=== PATIENT | female | born 1980 | race Caucasian/White ===

== ENCOUNTER 2019-03-08 17:16 | Emergency (ER) | payer SELFPAY ==
--- NOTE | 2019-03-08 17:18 | XRR_ITS ---
PROCEDURE INFORMATION: Exam: XR Right Shoulder Exam date and time: 03/08/2019 5:19 PM Age: 38 years old Clinical indication: Injury or trauma; Fall; Initial encounter; Blunt trauma (contusions or hematomas; Right; Injury date: 03/08/2019; Injury details: PT was pushing a car when she slipped and hit with RT shoulder/head. RT shoulder pain TECHNIQUE: Imaging protocol: XR Right shoulder. Views: 2 or more views. COMPARISON: No relevant prior studies available. FINDINGS: Bones/joints: There are moderate degenerative changes across the acromioclavicular joint. No evidence for acute fracture. Soft tissues: Normal. XR/XR shoulder RT min 2V* [id number] IMPRESSION: No acute findings. There are moderate degenerative changes across the acromioclavicular joint.
[2019-03-08 17:22] VITALS: BP 169/92; PULSE 113; RESP 16; TEMP 36.8; O2SAT 100; BMI 31.1
--- NOTE | 2019-03-08 17:42 | ED_ITS ---
HPI - Extremity Problem General: Chief complaint: Extremity Injury, Upper Stated complaint: FALL WITH RIGHT SHOULDER AND ARM PAIN Time Seen by Provider: 03/08/19 17:33 History of Present Illness: HPI Narrative: Patient states couple hours ago she was pushing a car and she slipped on gravel with her arms extended in front of her and then after that her right shoulder right arm started hurting said she has some bruising on that right shoulder that has improved. Complains about some right hand pain also.Denies any other injuries. MD Complaint: extremity pain Onset (ago): hour(s) (2) Pain Consistency: intermittent Location: right and upper extremity Severity scale (1-10): 6 Quality: aching Radiation: none Relieving factors: immobilization Associated symptoms: Deny chest pain, fever(s) or rash Review of Systems Const: Denies: fever, chills or body aches Eyes: Denies: change in vision or blurry vision ENMT: Denies: throat pain or nasal congestion Card: Denies: chest pain or shortness of breath on exertion Resp: Denies: shortness of breath, productive cough or non-productive cough GI: Denies: abdominal pain, nausea or vomiting Musc: Reports: extremity pain and limited range of motion; Denies: extremity swelling, joint pain or joint swelling Skin/Breast: Denies: rash Neuro: Denies: headache Psych: Denies: anxiety or depression Christian/Lymph: Denies: easy bruising PFSH ED PFSH: Statuses (acute, chronic, etc) shown below reflect problem list status as previously entered and may not be historically accurate Social History Smoking and tobacco status: former smoker Female Reproductive History: Date of last menstrual period: 02/01/19 Physical Exam Const: COMMON NORMALS: no apparent distress, average body habitus and oriented x3 HENMT: COMMON NORMALS: normocephalic HEAD & SCALP: normal to inspection and normocephalic FACE & SINUS: normal facial exam Eye: COMMON NORMALS: conjunctivae normal GENERAL EYE: normal appearance of both eyes CONJUNCTIVA: Yes conjunctivae normal Neck/C-Spine: COMMON NORMALS: no JVD Chest: COMMONS NORMALS: inspection of chest normal Resp: COMMON NORMALS: normal respiratory effort and clear to auscultation bilaterally AUSCULTATION: clear to auscultation bilaterally Cardio: COMMON NORMALS: no JVD, regular rate and regular rhythm RATE: regular rate RHYTHM: regular rhythm GI: COMMON NORMALS: normal to inspection, nondistended, normoactive bowel sounds Extremity: COMMON NORMALS: normal to inspection and full ROM RIGHT UPPER EXTREMITY: Yes shoulder joint (Pain no swelling), Yes upper arm (Pain no swelling) and Yes hand & digits (Pain no swelling) Neuro: COMMON NORMALS: oriented x3 Course Vital Signs: Vital signs: Vital Signs Temperature 98.2 F 03/08/19 17:22 Pulse Rate 113 H 03/08/19 17:22 Respiratory Rate 16 03/08/19 17:22 Blood Pressure 169/92 03/08/19 17:22 Pulse Oximetry 100 03/08/19 17:22 Coding Level of Care Code ED Aviation Consultant for Mike Stark
[2019-03-08 18:18] VITALS: BP 148/95; PULSE 106; RESP 18; O2SAT 100
== END 2019-03-08 18:13 | disposition home or self-care (01) ==
PROVIDERS: Emergency Provider Nurse Practitioner Family; PCP Urology
DX: M79.601 Pain in right arm (principal); Z87.891 Personal history of nicotine dependence
CPT/HCPCS: 73030; 99281

== ENCOUNTER 2019-07-22 20:28 | Emergency (ER) | payer SELFPAY ==
--- NOTE | 2019-07-22 20:37 | XR_ITS ---
WS: [id number] Portable AP upright chest, 07/22/2019 Clinical Data: SOB Comparison: None. Findings: No nodules, masses or effusions are seen. The heart is normal. The pulmonary vascularity is not increased. No pneumonia or pneumothorax is seen. There are healed rib fractures of the lateral a spect of the left fourth, sixth and seventh ribs. XR/XR chest 1V portable [id number] Impression: Negative chest.
[2019-07-22 22:08] VITALS: BP 138/78; PULSE 84; RESP 16; TEMP 36.9; O2SAT 99; BMI 34.0
--- NOTE | 2019-07-23 | USR_ITS ---
PROCEDURE INFORMATION: Exam: US Abdomen Limited, Right Upper Quadrant Exam date and time: 07/23/2019 12:33 AM Age: 39 years old Clinical indication: Abdominal pain TECHNIQUE: Imaging protocol: Real-time ultrasound of the abdomen with image documentation. Examination was focused on the right upper quadrant. COMPARISON: No relevant prior studies available. FINDINGS: Liver: Unremarkable liver, no focal abnormality. Gallbladder: Unremarkable gallbladder. No cholelithiasis. No gallbladder wall thickening or pericholecystic fluid. The gallbladder does not appear abnormally distended at this time. Common bile duct: No biliary dilation, common duct measures 4.5 mm. Pancreas: Visible pancreas unremarkable. Right kidney: Images of the right kidney show no hydronephrosis. US/US gall bladder [id number] IMPRESSION: 1. No cholelithiasis or biliary tree dilation. 2. Other findings discussed above.
[2019-07-23 00:42] VITALS: PULSE 88; RESP 18; O2SAT 100
[2019-07-23 00:49] LABS: Basophils % 0.5 %; Eosinophils # 0.1 10^3/uL (0.0-0.8); Eosinophils % 1.8 %; Hematocrit 36.5 % (37.0-47.0); Hemoglobin 11.5 g/dL (11.5-15.3); Lymphocytes # 2.9 10^3/uL (0.8-4.8); Mean Corpuscular HGB Conc 31.5 g/dL (30.0-36.0); Mean Corpuscular Hemoglobin 28.1 pg (28.0-34.0); Mean Corpuscular Volume 89.2 fL (81-99); Mean Platelet Volume 10.3 fL (7.4-10.4); Monocytes # 0.4 10^3/uL (0.2-0.9); Monocytes % 6.9 %; Neutrophils # 2.7 10^3/uL (1.8-7.7); Neutrophils % 43.5 %; Nucleated Red Blood Cells % 0 %; Platelet Count 244 10^3/cmm (130-400); Red Blood Count 4.09 10^6/uL (4.1-5.3); Red Cell Distribution Width 14.4 % (12.1-15.1); White Blood Count 6.1 10^3/uL (4.0-10.0)
[2019-07-23 01:03] VITALS: RESP 18; O2SAT 100
[2019-07-23] MEDS: ondansetron 2 mg/ML SDV 2 mL 4 MG IVP (01:03)
[2019-07-23] MEDS: morphine 4 mg/mL SDV 1 mL IVP (01:03)
[2019-07-23 01:09] LABS: Amorphous Sediment Urine 2+; Bacteria Urine 1+; Bilirubin Urine Neg (NEGATIVE); Blood Urine Neg (Negative); Glucose Urine UA Norm (Normal); Ketones Urine Negative (Negative); Leukocyte Esterase Urine Negative (Negative); Nitrate Urine Negative (Negative); Protein Urine Neg (Negative); RBC Urine RARE /hpf (0-2); Squamous Epithelial Cell Urine RARE (0-5); Urine Appearance SL Hazy (CLEAR); Urine Color Yellow (Yellow); Urobilinogen Urine Norm (Negative); WBC Urine 0-4 /hpf (0-5); pH Urine 6 (5-7)
--- NOTE | 2019-07-23 01:18 | W.ED.NAVMDI ---
HPI - Nausea/Vomiting/Diarrhea General: Chief complaint: Nausea/Vomiting/Diarrhea Stated complaint: vomiting/sob Time Seen by Provider: 07/22/19 23:52 History of Present Illness: HPI Narrative: Georgia is a very nice 39-year-old female who comes in with abdominal pain and vomiting for the past 2 days. He had a temperature as high as 100.4. Her abdominal pain is described as cramping and intermittent and mostly in the upper abdomen. She is had some associated diarrhea but also dysuria. She denies any chest pain or shortness of breath. She mentioned to the nurse that she was short of breath but she said that was from she had just been vomiting. She denies any shortness of breath at this time. She denies cough, congestion, headache, low back pain or any other discomforts. She is unaware of anything that makes her symptoms better or worse. Associated nausea: Yes Associated symtoms: Reports nausea; Denies change in vision, chest pain, diaphoresis, dizziness, dysuria, fatigue, headache(s), malaise, palpitations or syncope Review of Systems Const: Denies: fever(s), chills, body aches, fatigue, malaise or diaphoresis Eyes: Denies: change in vision, blurry vision, blind spots or photophobia ENMT: Denies: throat pain, odynophagia, hoarseness, swelling of lips/tongue, ear or mastoid pain, ear discharge, change in hearing or nasal discharge Card: Denies: chest pain, palpitations, irregular heart rhythm, edema, lightheadedness, syncope, pre-syncope, dyspnea on exertion or orthopnea Resp: Denies: dyspnea, productive cough, non-productive cough, wheezing, hemoptysis or chest congestion GI: Reports: abdominal pain, nausea, vomiting and diarrhea; Denies: hematemesis, coffee ground emesis, heartburn, constipation, GI cramping, hematochezia or melena : Denies: flank pain, dysuria, urinary frequency, urinary urgency or hematuria Musc: Denies: neck pain, back pain, extremity pain, extremity swelling, joint pain, joint swelling, joint redness, joint warmth or joint stiffness Skin/Breast: Denies: rash, pruritus, erythema, skin tenderness or jaundice Neuro: Denies: headache(s), numbness in extremities, weakness in extremities, sensory changes, lack of coordination, difficulty walking, dizziness, vertigo, confusion or Slurred speech present Christian/Lymph: Denies: easy bruising, easy bleeding, petechiae, purpura or enlarged lymph nodes All/Imm: Denies: urticaria, throat swelling, tongue swelling, facial swelling or acute wheezing PFSH ED PFSH: Medical History No pertinent past medical history Surgical History No history of previous surgery Social History Smoking and tobacco status: former smoker Female Reproductive History: Date of last menstrual period: 07/21/19 Physical Exam Const: COMMON NORMALS: no acute distress, patient oriented x3, no limitations, healthy appearing and well nourished GENERAL APPEARANCE: cooperative, well kempt and well developed HENMT: COMMON NORMALS: normocephalic, atraumatic, external ears normal, EAC's normal and Normal external nose present HEAD & SCALP: normal to inspection, normocephalic and atraumatic FACE & SINUS: normal facial exam and face symmetric NOSE: Normal external nose present and Normal nares present EXTERNAL EAR: Yes external ears normal EXTERNAL AUDITORY CANAL: EAC's normal MOUTH: Normal oral and palatal mucosa present, lip normal and tongue normal Eye: COMMON NORMALS: Equal, round and reactive pupils present and conjunctivae normal GENERAL EYE: appearance normal, both eyes and all related structures ALIGNMENT: Yes alignment normal PERIORBITAL: periorbital findings normal EYELID: eyelids normal CONJUNCTIVA: Yes conjunctivae normal SCLERA: sclerae normal PUPIL: Yes Equal, round and reactive pupils present Neck/C-Spine: COMMON NORMALS: full ROM, no lymphadenopathy, supple, no meningeal signs and no JVD GENERAL: Yes normal visual inspection and Yes trachea midline Chest: COMMONS NORMALS: normal inspection of the chest and normal palpation of entire chest wall Resp: COMMON NORMALS: normal respiratory effort, No retractions and No use of accessory muscles EFFORT & INSPECTION: Yes able to speak in complete sentences and Yes symmetric chest movement AUSCULTATION: no crackles, no rales, no rhonchi and no wheezes Cardio: COMMON NORMALS: no JVD, regular rate, regular rhythm, S1 normal heart sound present and S2 normal heart sound present RATE: regular rate RHYTHM: regular rhythm HEART SOUNDS: S1 normal heart sound present, S2 normal heart sound present, no click, no gallops, no murmurs, no rubs and abnormal split S2 GI: COMMON NORMALS: Soft to palpation and No hepatosplenomegaly present PALPATION: Yes Soft to palpation, Yes Tenderness to palpation present (GI) Details: RUQ; Negative for RLQ, No Guarding due to palpation present (GI), No Rigid due to palpation, Yes No hepatosplenomegaly present, No Hernia present, No Palpable mass present and No Pulsatile mass present : COMMON NORMALS: Yes no CVA tenderness BLADDER/KIDNEY EXAM: Yes no CVA tenderness EXTERNAL FEMALE EXAM: No Hernia present Back/Pelvis: COMMON NORMALS: no CVA tenderness, thoracic and lumbar spine normal to inspection, no thoracic nor lumbar tenderness and thoraco-lumbar ROM normal Extremity: COMMON NORMALS: normal to inspection, full ROM, capillary refill normal, no joint enlargement, no clubbing, cyanosis or edema and no calf tenderness Neuro: COMMON NORMALS: patient oriented x3, CN's II-XII intact bilaterally, moves all extremities, no focal motor deficits and no sensory deficits noted MENINGEAL SIGNS: Yes no meningeal signs SPEECH: speech normal Psych: COMMON NORMALS: mental status grossly normal, Normal thought process present, cooperative, normal affect, speech normal and activity/motor behavior normal APPEARANCE: Yes well kempt SPEECH: Yes normal speech THOUGHT PROCESS: Normal thought process present Skin: COMMON NORMALS: no rashes or lesions noted, turgor normal, no jaundice, no petechiae and no mottling GENERAL SKIN EXAM: no rashes or lesions noted and turgor normal Course Vital Signs: Vital signs: Vital Signs Temperature 98.4 F 07/22/19 22:08 Pulse Rate 88 07/23/19 00:42 Respiratory Rate 18 07/23/19 01:03 Blood Pressure 138/78 07/22/19 22:08 Pulse Oximetry 100 07/23/19 01:03 MDM - Nausea/Vomiting/Diarrhea MDM Narrative: Medical decision making narrative: [place] ultrasound is unremarkable. I have recommended that we perform a CT scan to rule out appendicitis but she declines. She states she is feeling better now with just IV fluids. She has no right lower quadrant pain on palpation. She states her right upper quadrant abdominal pain is gone. She states she wants to go home at this time. She understands the risks of missed appendicitis and I have discussed with her at length the possibility of that being a cause for her pain but she still wants to go home. She does agree to return should her symptoms change or worsen at this time she is feeling better and would like to be discharged. Lab Data: Attestation: I reviewed the patient's lab results. Labs: Lab Results 07/23/19 07/23/19 07/23/19 Range/Units 00:38 00:38 00:38 WBC 6.1 (4.0-10.0) 10^3/ uL RBC 4.09 L (4.1-5.3) 10^6/u L Hgb 11.5 (11.5-15.3) g/dL Hct 36.5 L (37.0-47.0) % MCV 89.2 (81-99) fL MCH 28.1 (28.0-34.0) pg MCHC 31.5 (30.0-36.0) g/dL RDW 14.4 (12.1-15.1) % Plt Count 244 (130-400) 10^3/c mm MPV 10.3 (7.4-10.4) fL Neut % (Auto) 43.5 % Lymph % (Auto) 47.0 % Hooker % (Auto) 6.9 % Eos % (Auto) 1.8 % Baso % (Auto) 0.5 % Neut # (Auto) 2.7 (1.8-7.7) 10^3/u L Lymph # (Auto) 2.9 (0.8-4.8) 10^3/u L Hooker # (Auto) 0.4 (0.2-0.9) 10^3/u L Eos # (Auto) 0.1 (0.0-0.8) 10^3/u L Baso # (Auto) 0.0 (0.0-0.1) 10^3/u L Nucleated RBC % (a uto) 0 % Nucleated RBCs # 0.0 /100WBC Sodium 140 (136-145) mmol/L Potassium 4.0 (3.5-5.1) mmol/L Chloride 104 (98-107) mmol/L Carbon Dioxide 25 (22-29) mmol/L Anion Gap 15.0 (5-19) BUN 11 (6-20) mg/dL Creatinine 0.5 (0.5-0.9) mg/dL GFR Calculation 138.8 H (90-130) mL/min Glucose 98 (65-115) mg/dL Calculated Osmolal ity 286 (285-295) mOsm/k g Calcium 8.7 (8.5-10.5) mg/dL Total Bilirubin 0.2 (0.15-1.2) mg/dL AST 36 H (0-32) U/L ALT 39 H (0-33) U/L Alkaline Phosphata se 52 (35-105) IU/L Total Protein 6.4 L (6.6-8.7) g/dL Albumin 3.9 (3.5-5.2) g/dL Globulin 2.5 (1.3-4.6) g/dL Lipase 20 (13-60) U/L Urine Color Yellow (Yellow) Urine Appearance Sl hazy (CLEAR) Urine pH 6 (5-7) Ur Specific Gravit y 1.020 (1.005-1.030) Urine Protein Neg (Negative) Urine Glucose (UA) Norm (Normal) Urine Ketones Negative (Negative) Urine Blood Neg (Negative) Urine Nitrate Negative (Negative) Urine Bilirubin Neg (NEGATIVE) Urine Urobilinogen Norm (Negative) mg/dL Ur Leukocyte Sherita ase Negative (Negative) Urine RBC Rare (0-2) /hpf Urine WBC 0-4 H (0-5) /hpf Ur Squamous Epith Cells Rare (0-5) Amorphous Sediment 2+ Urine Bacteria 1+ H (NONE) Imaging Data^: US: My impression: Ultrasound gallbladder, technologist interpretation -no acute findings. Discharge Plan Discharge Patient Disposition: Home, Self-Care Clinical Impression: Abdominal pain, vomiting, and diarrhea, Dehydration Condition: Stable Prescriptions: New dicyclomine 10 mg capsule 10 mg PO TID PRN (Reason: Diarrhea, abdominal cramping) Qty: 30 RF: 0 ondansetron HCl [Zofran] 4 mg tablet 4 mg PO QID PRN (Reason: nausea and vomiting) Qty: 20 RF: 0 No Action No Known Home Medications RF: 0 tramadol 50 mg tablet 50 mg PO Q6H PRN (Reason: pain) Qty: 7 RF: 0 Discharge Orders: Discharge Order (Routine); Ordered 07/23/19 Ordered By: Yumi Styles Referrals: Burke Chilel MD [Physician] - 1-3 days Discharge Diet: Advance as tolerated and Clear Liquid Discharge Activity: Increase activity as tolerated Patient Instructions: Abdominal Pain (ED) Activity Restrictions/Additional Instructions: Please return to the ER immediately for any of the signs or symptoms listed on your discharge instruction sheets, worsening/changing of your symptoms, you are not getting better as quickly as expected, or for ANY other cause or concerns. Return to the ER for return of your pain, return of fever, return of vomiting, blood in your stools, or for any other cause for concern. I have recommended and offered to perform a CT scan to definitively rule out appendicitis but you have declined. Of course appendicitis if missed can become severe even life-threatening. If you change your mind or your symptoms worsen/change in any way please return to the ER immediately for recheck. If your pain persists for more than another 10 to 12 hours return to the ER regardless as you will need further evaluation and care to definitively rule out appendicitis. Coding Level of Care Code ED Welding Machine Setter for Chg Fwd Exam Comprehensive
[2019-07-23 01:20] LABS: Alanine Aminotransferase 39 U/L (0-33); Albumin Level 3.9 g/dL (3.5-5.2); Alkaline Phosphatase 52 IU/L (35-105); Aspartate Amino Transferase 36 U/L (0-32); Blood Urea Nitrogen 11 mg/dL (6-20); Calcium 8.7 mg/dL (8.5-10.5); Carbon Dioxide 25 mmol/L (22-29); Chloride 104 mmol/L (98-107); Creatinine Clr Calc Pharmacy 149.1726; Globulin 2.5 g/dL (1.3-4.6); Glomerular Filtration Rate 138.8 mL/min (90-130); Glucose 98 mg/dL (65-115); Lipase 20 U/L (13-60); Osmolality Calculated 286 mOsm/kg (285-295); Sodium 140 mmol/L (136-145); Total Bilirubin 0.2 mg/dL (0.15-1.2); Total Protein 6.4 g/dL (6.6-8.7)
[2019-07-23] MEDS: sodium chloride 0.9% 1,000 ML 999 ML IV (01:44)
[2019-07-23 01:55] LABS: HCG, Serum Qual Negative (Negative)
[2019-07-23 02:25] VITALS: BP 127/73; PULSE 75; RESP 16; O2SAT 97
--- NOTE | 2019-07-23 03:11 | PC.NURSE ---
INT removed intact. Pressure dressing in place
[2019-07-23 03:12] VITALS: BP 109/63; PULSE 79; RESP 19
--- NOTE | 2019-07-23 09:32 | DCPLANNER ---
environmental health and safety manager had message to schedule a follow up appointment for patient with general surgery. environmental health and safety manager called [facility], spoke with Zoë. environmental health and safety manager gave clinic patients information, a follow up appointment is scheduled for Monday, July 29, 2019 at 3:[address] Chilel. Clinic will call patient with appointment information.
--- NOTE | 2019-08-08 13:55 | DCPLANNER ---
Patient had an appointment scheduled for Monday, July 29, 2019 at 3:[address] Chilel. Patient did attend the appointment.
== END 2019-07-23 03:14 | disposition home or self-care (01) ==
PROVIDERS: Emergency Provider Emergency Medicine
DX: R10.9 Unspecified abdominal pain (principal); R11.10 Vomiting, unspecified; R19.7 Diarrhea, unspecified; E86.0 Dehydration; Z87.891 Personal history of nicotine dependence
CPT/HCPCS: 12345; 71045; 76705; 80053; 81001; 83690; 84703; 85025; 96360; 96361; 96374; 96375; 99283; 99284; A9270; J2270; J2405; J7030

== ENCOUNTER 2019-08-06 09:21 | Outpatient (CLI) | payer SELFPAY ==
--- NOTE | 2019-08-06 10:00 | NM_ITS ---
WS: [id number] NUCLEAR MEDICINE HIDA SCAN WITH GALLBLADDER EJECTION FRACTION HISTORY: vomiting after fatty foods COMPARISON: None available. TECHNIQUE: The patient was intravenously injected with 7.6 mCi of TC99m Mebrofenin. Immediate imaging over the right upper quadrant was followed by 5 minute image and additional images for a total of 60 minutes. Normal uptake of radiotracer throughout the liver. Activity identified in the gallbladder at 20 minutes and well distended by 60 minutes. Activity in the proximal small bowel was seen by 50 minutes. Good washout of the radiotracer from the liver by 60 minutes. The patient then drank 8 ounces of Ensure Plus. Ejection fraction at 60 minutes was 74%. Normal GB ej ection fraction is 35-75%. Post fatty meal symptoms: None. NM/NM hepatobiliary w phar* [id number] IMPRESSION: 1. Normal HIDA scan. 2. Normal gallbladder ejection fraction.
== END 2019-08-06 09:22 | disposition home or self-care (01) ==
LOC: RAD 09:26
PROVIDERS: Visit Provider Surgery
DX: R11.10 Vomiting, unspecified (principal)
CPT/HCPCS: 78227; A9537

== ENCOUNTER → 2019-09-12 13:28 | Outpatient (BNVA) | payer SELFPAY | PROVIDERS: Visit Provider Family Medicine | DX: R30.0 Dysuria (principal); M25.511 Pain in right shoulder; G89.29 Other chronic pain | CPT/HCPCS: 81000 ==

== ENCOUNTER → 2019-11-26 15:30 | Outpatient (BNVA) | payer SELFPAY | PROVIDERS: Referring Provider Family Medicine; Visit Provider Specialist | DX: M25.511 Pain in right shoulder (principal) | CPT/HCPCS: 73030 ==

== ENCOUNTER → 2019-12-21 18:17 | Outpatient (BNVA) | payer OTHER, SELFPAY | PROVIDERS: Visit Provider Nurse Practitioner | DX: Z11.59 Encounter for screening for other viral diseases (principal) | CPT/HCPCS: 87635 ==

== ENCOUNTER 2020-11-18 08:13 | Emergency (ER) | payer SELFPAY ==
[2020-11-18 08:23] VITALS: BP 146/94; PULSE 106; RESP 18; TEMP 36.8; O2SAT 97; BMI 32.1
--- NOTE | 2020-11-18 08:39 | ECG_ITS ---
[facility] Test Date: 2020-11-18 Pat Name: Toyin Kang Department: Room: Gender: Female Tax Senior Associate: : 1980 Requested By: Kera Grossman Order Number: [id number] Gavi MD: Yvonne Harman M.D. Measurements Intervals [place] Rate: 94 P: 59 AK: 156 QRS: 46 QRSD: 84 T: 48 QT: 342 QTc: 429 Interpretive Statements SINUS RHYTHM No previous ECG available for comparison Electronically Signed On 11-19-2020 9:38:19 CDT by Yvonne Harman M.D. [email or web address]
--- NOTE | 2020-11-18 08:39 | XR_ITS ---
WS: [id number] XR chest 1V portable [id number] REASON FOR EXAM: chest pain FINDINGS: The chest is unchanged compared to previous examination of 07/22/2019. The heart and mediastinum are within normal limits. Calcified granulomatous disease in both hemithoraces. No active pulmonary parenchymal or pleural dise ase. Old healed rib fractures on the left. XR/XR chest 1V portable [id number] IMPRESSION: No acute chest abnormality.
--- NOTE | 2020-11-18 08:41 | W.ED.GENADLT ---
Documented by User: MANDEEP Shaw 11/18/20 11:01 HPI - General Adult General: Chief complaint: General Medical Stated complaint: Tingling in hands, swelling in feet Time Seen by Provider: 11/18/20 08:15 Source: patient Mode of arrival: ambulatory Limitations: no limitations History of Present Illness: HPI narrative: Patient is a 40-year-old female presents to ED today with multiple medical complaints. She tells me she has bilateral lower extremity swelling that has been present over the past 3 to 4 months. She tells me when she wears socks she notices an indentation in her legs when she removes them. Patient also has a complaint of bilateral hand numbness and tingling. She states again this has been present for several months. She does use her upper extremities a lot for work. She has a complaint of difficulty with urination. She states she has a lot of urgency and sometimes trouble starting the stream. She states this is been present for several years. She has discussed this with her PCP who told her it could be secondary to early menopause. She is having a complaint of some chest discomfort that started around 4am this morning. Patient tells me she has a history of anxiety and sometimes will experience chest pain but states this felt a little different. She describes it as a heaviness in her chest. She is not complaining of shortness of breath or difficulty breathing. No painful inspiration. No fevers/chills. Associated symptoms: Reports chest pain; Deny headache(s), malaise, nausea, rash, palpitations, syncope or vomiting Treatments prior to arrival: none Review of Systems Const: Denies: fever(s), chills, body aches, change in appetite, change in weight, fatigue or malaise Eyes: Denies: change in vision, blurry vision, photophobia, floaters or seeing flashes Card: Reports: chest pain and swelling of feet/ankles; Denies: palpitations, irregular heart rhythm, edema, lightheadedness, syncope, pre-syncope, dyspnea on exertion, orthopnea, leg pain with exertion or acrocyanosis Resp: Denies: productive cough, non-productive cough, wheezing, pain on inspiration, hemoptysis or chest congestion GI: Denies: abdominal pain, nausea, vomiting or diarrhea : Reports: difficulty voiding, urinary urgency and urinary hesitancy; Denies: flank pain, dysuria, urinary frequency, nocturia, urinary incontinence, hematuria or pelvic pain Musc: Denies: neck pain, back pain, extremity pain or joint pain Skin/Breast: Denies: rash Neuro: Reports: sensory changes (reports tingling to bilateral hands); Denies: headache(s), weakness in extremities or dizziness [facility] ED PFSH: Medical History (Updated 11/18/20 @ 10:59 by MNADEEP Shaw) GERD (gastroesophageal reflux disease) No pertinent past medical history Surgical History No history of previous surgery Family History Father CAD (coronary artery disease) Other Chronic kidney disease (CKD) Denies family history of Anesthesia complication Bleeding disorder Social History Smoking and tobacco status: former smoker Alcohol intake: never Lives independently: Yes Marital status: Single History of recent travel: No Physical Exam Const: COMMON NORMALS: no acute distress, patient oriented x3, no limitations and alert GENERAL APPEARANCE: cooperative NUTRITIONAL APPEARANCE: obese ORIENTATION/CONSCIOUSNESS: Yes awake, Yes oriented to person, Yes oriented to place and Yes oriented to time HENMT: COMMON NORMALS: normocephalic and atraumatic HEAD & SCALP: normocephalic and atraumatic Chest: COMMONS NORMALS: normal inspection of the chest OTHER: reports tenderness to anterior palpation of chest wall Resp: COMMON NORMALS: normal respiratory effort and clear to auscultation bilaterally AUSCULTATION: clear to auscultation bilaterally Cardio: COMMON NORMALS: regular rate and regular rhythm RATE: regular rate RHYTHM: regular rhythm GI: COMMON NORMALS: Normal to inspection, nondistended, normoactive bowel sounds present, Soft to palpation, non-tender, No hepatosplenomegaly present and no masses PALPATION: Yes Soft to palpation and Yes No hepatosplenomegaly present : COMMON NORMALS: Yes no CVA tenderness BLADDER/KIDNEY EXAM: Yes no CVA tenderness Back/Pelvis: COMMON NORMALS: no CVA tenderness Extremity: COMMON NORMALS: full ROM, capillary refill normal, no joint enlargement and no calf tenderness NARRATIVE EXTREMITY EXAM: mild bilateral symmetrical 1+ pitting edema GENERAL: Yes normal exam except as noted Neuro: ENRRIQUE COMA SCALE: document GCS findings [place] coma scale eye opening: Spontaneous [place] coma scale verbal response: Orientated [place] coma scale motor response: Obey commands Enrrique coma scale total score: 15 COMMON NORMALS: patient oriented x3, CN's II-XII intact bilaterally, moves all extremities, no focal motor deficits, no sensory deficits noted and gait normal SENSORIUM/ORIENTATION: Yes alert, Yes oriented to person, Yes oriented to place and Yes oriented to time MOTOR EXAM: 5/5 motor strength present throughout Skin: COMMON NORMALS: no rashes or lesions noted GENERAL SKIN EXAM: no rashes or lesions noted TRAUMA: no lacerations or abrasions Course Vital Signs: Vital signs: Vital Signs Temperature 98.2 F 11/18/20 08:23 Pulse Rate 100 11/18/20 11:46 Respiratory Rate 16 11/18/20 10:10 Blood Pressure 116/70 11/18/20 11:46 Pulse Oximetry 96 11/18/20 11:46 MDM - General Adult MDM Narrative: Medical decision making narrative: Patient here with multiple medical complaints none of which are acute. She did have some chest pain that she was complaining about that she stated felt slightly different. Work-up here including CBC, CMP, troponin, and BNP are unremarkable. Her EKG is normal. CXR is normal. Vital signs are stable. Recommend she follow-up with her primary care provider for further evaluation and treatment of her chronic symptoms. Lab Data: Labs: Lab Results 11/18/20 11/18/20 11/18/20 10:02 10:02 10:02 WBC 5.5 10^3/uL 10^3/ uL (4.0-10.0) RBC 4.07 10^6/uL L 10 ^6/uL (4.1-5.3) Hgb 11.7 g/dL g/dL (11.5-15.3) Hct 37.9 % % (37.0-47.0) MCV 93.1 fl fl (81-99) MCH 28.7 pg pg (28.0-34.0) MCHC 30.9 g/dL g/dL (30.0-36.0) RDW 13.2 % % (12.1-15.1) Plt Count 282 10^3/cmm 10^3 /cmm (130-400) MPV 9.6 fL fL (7.4-10.4) Neut % (Auto) 32.7 % % Lymph % (Auto) 56.3 % % [place] % (Auto) 7.4 % % Eos % (Auto) 2.5 % % Baso % (Auto) 1.1 % % Neut # (Auto) 1.80 10^3/uL 10^3 /uL (1.8-7.7) Lymph # (Auto) 3.1 10^3/uL 10^3/ uL (0.8-4.8) [place] # (Auto) 0.4 10^3/uL 10^3/ uL (0.2-0.9) Eos # (Auto) 0.1 10^3/uL 10^3/ uL (0.0-0.8) Baso # (Auto) 0.1 10^3/uL 10^3/ uL (0.0-0.1) Nucleated RBC % (a uto) 0 % % Nucleated RBCs # 0.0 /100WBC /100W BC Sodium 138 mmol/L mmol/L (136-145) Potassium 3.9 mmol/L mmol/L (3.5-5.1) Chloride 102 mmol/L mmol/L (98-107) Carbon Dioxide 28 mmol/L mmol/L (22-29) Anion Gap 11.9 (5-19) BUN 10 mg/dL mg/dL (6-20) Creatinine 0.6 mg/dL mg/dL (0.5-0.9) GFR Calculation 111.9 mL/min mL/m in (90-130) Glucose 75 mg/dL mg/dL (65-115) Calculated Osmolal ity 284 mOsm/kg L mOs m/kg (285-295) Calcium 8.8 mg/dL mg/dL (8.5-10.5) Total Bilirubin 0.2 mg/dL mg/dL (0.15-1.2) AST 28 U/L U/L (0-32) ALT 29 U/L U/L (0-33) Alkaline Phosphata se 57 IU/L IU/L (35-105) Troponin T Baselin e 6 ng/L ng/L (0-10) NT-Pro-B Natriuret Pep 31 pg/mL pg/mL (0-125) Total Protein 6.2 g/dL L g/dL (6.6-8.7) Albumin 3.4 g/dL L g/dL (3.5-5.2) Globulin 2.8 g/dL g/dL (1.3-4.6) Imaging Data^: CXR: Radiologist's impression: [place] [id number], [place] [address]TCpa ReportSigned Patient: Toyin Kang #: [id number]: 1980Acct#:[id number]/Sex: 40 / FADM Date: 11/18/20Loc: ERRoom/Bed:Attending Dr: Ordering Provider/Ordering MD: Kera Grossman Date of Service: 11/18/20 Procedure(s): XR chest 1V portable [id number] Accession Number(s): [id number] Report Number: [id number] WS: [id number] XR chest 1V portable [id number] REASON FOR EXAM: chest pain FINDINGS: The chest is unchanged compared to previous examination of 07/22/2019. The heart and mediastinum are within normal limits. Calcified granulomatous disease in both hemithoraces. No active pulmonary parenchymal or pleural disease. Old healed rib fractures on the left. XR/XR chest 1V portable [id number] IMPRESSION: No acute chest abnormality. Dictated By:Joshua Shaw Jr MDSigned By:Joshua Shaw Jr MDSigned Date/Time:11/18/20 0900DD/ 0859 EKG Data^: EKG 1: EKG interpretation date: 11/18/20 EKG interpretation time: 09:03 Interpretation: Sinus rhythm Rate [address] elevation or depression changes noted Computer generated interpretation: Chest X-Ray 11/18/20 08:39 IMPRESSION: No acute chest abnormality. EKG 2: EKG interpretation date: 11/18/20 EKG interpretation time: 10:58 Interpretation: Sinus rhythm Rate [address] elevation or depression changes noted No acute changes noted when compared to EKG performed earlier on same visit Computer generated interpretation: Chest X-Ray 11/18/20 08:39 IMPRESSION: No acute chest abnormality. Discharge Plan Discharge Patient Disposition: Home Clinical Impression: Difficulty urinating, Non-cardiac chest pain, Bilateral edema of lower extremity Condition: Stable Prescriptions: No Action ascorbate calcium (vitamin C) 500 mg tablet 1 gm PO DAILY RF: 0 lansoprazole PO RF: 0 dicyclomine 10 mg capsule 10 mg PO TID PRN (Reason: Diarrhea, abdominal cramping) Qty: 30 RF: 0 Zofran 4 mg tablet 4 mg PO QID PRN (Reason: nausea and vomiting) Qty: 20 RF: 0 Discharge Orders: Discharge ED (Routine); Ordered 11/18/20 Ordered By: Kera Grossman Coding Level of Care Code ED Bilingual Operator for Chg Fwd Exam Comprehensive Documented by User: Champ Jain DO 11/18/20 17:21 HPI - General Adult General: Chief complaint: General Medical Stated complaint: Tingling in hands, swelling in feet Time Seen by Provider: 11/18/20 08:15 PFSH ED PFSH: Medical History (Updated 11/18/20 @ 10:59 by MANDEEP Shaw) GERD (gastroesophageal reflux disease) No pertinent past medical history Surgical History No history of previous surgery Family History Father CAD (coronary artery disease) Other Chronic kidney disease (CKD) Denies family history of Anesthesia complication Bleeding disorder Social History Smoking and tobacco status: former smoker Alcohol intake: never Lives independently: Yes Marital status: Single History of recent travel: No Course Vital Signs: Vital signs: Vital Signs Temperature 98.2 F 11/18/20 08:23 Pulse Rate 100 11/18/20 11:46 Respiratory Rate 16 11/18/20 10:10 Blood Pressure 116/70 11/18/20 11:46 Pulse Oximetry 96 11/18/20 11:46 MDM - General Adult MDM Narrative: Medical decision making narrative: Chart reviewed agree with assessment and plan Lab Data: Labs: Lab Results 11/18/20 11/18/20 11/18/20 10:02 10:02 10:02 WBC 5.5 10^3/uL 10^3/ uL (4.0-10.0) RBC 4.07 10^6/uL L 10 ^6/uL (4.1-5.3) Hgb 11.7 g/dL g/dL (11.5-15.3) Hct 37.9 % % (37.0-47.0) MCV 93.1 fl fl (81-99) MCH 28.7 pg pg (28.0-34.0) MCHC 30.9 g/dL g/dL (30.0-36.0) RDW 13.2 % % (12.1-15.1) Plt Count 282 10^3/cmm 10^3 /cmm (130-400) MPV 9.6 fL fL (7.4-10.4) Neut % (Auto) 32.7 % % Lymph % (Auto) 56.3 % % [place] % (Auto) 7.4 % % Eos % (Auto) 2.5 % % Baso % (Auto) 1.1 % % Neut # (Auto) 1.80 10^3/uL 10^3 /uL (1.8-7.7) Lymph # (Auto) 3.1 10^3/uL 10^3/ uL (0.8-4.8) [place] # (Auto) 0.4 10^3/uL 10^3/ uL (0.2-0.9) Eos # (Auto) 0.1 10^3/uL 10^3/ uL (0.0-0.8) Baso # (Auto) 0.1 10^3/uL 10^3/ uL (0.0-0.1) Nucleated RBC % (a uto) 0 % % Nucleated RBCs # 0.0 /100WBC /100W BC Sodium 138 mmol/L mmol/L (136-145) Potassium 3.9 mmol/L mmol/L (3.5-5.1) Chloride 102 mmol/L mmol/L (98-107) Carbon Dioxide 28 mmol/L mmol/L (22-29) Anion Gap 11.9 (5-19) BUN 10 mg/dL mg/dL (6-20) Creatinine 0.6 mg/dL mg/dL (0.5-0.9) GFR Calculation 111.9 mL/min mL/m in (90-130) Glucose 75 mg/dL mg/dL (65-115) Calculated Osmolal ity 284 mOsm/kg L mOs m/kg (285-295) Calcium 8.8 mg/dL mg/dL (8.5-10.5) Total Bilirubin 0.2 mg/dL mg/dL (0.15-1.2) AST 28 U/L U/L (0-32) ALT 29 U/L U/L (0-33) Alkaline Phosphata se 57 IU/L IU/L (35-105) Troponin T Baselin e 6 ng/L ng/L (0-10) NT-Pro-B Natriuret Pep 31 pg/mL pg/mL (0-125) Total Protein 6.2 g/dL L g/dL (6.6-8.7) Albumin 3.4 g/dL L g/dL (3.5-5.2) Globulin 2.8 g/dL g/dL (1.3-4.6) EKG Data^: EKG 1: Computer generated interpretation: Chest X-Ray 11/18/20 08:39 IMPRESSION: No acute chest abnormality. EKG 2: Computer generated interpretation: Chest X-Ray 11/18/20 08:39
[2020-11-18 10:10] VITALS: BP 121/80; PULSE 97; RESP 16; O2SAT 98
[2020-11-18 10:14] LABS: Basophils # 0.1 10^3/uL (0.0-0.1); Basophils % 1.1 %; Eosinophils # 0.1 10^3/uL (0.0-0.8); Eosinophils % 2.5 %; Hematocrit 37.9 % (37.0-47.0); Hemoglobin 11.7 g/dL (11.5-15.3); Lymphocytes # 3.1 10^3/uL (0.8-4.8); Lymphocytes % 56.3 %; Mean Corpuscular HGB Conc 30.9 g/dL (30.0-36.0); Mean Corpuscular Hemoglobin 28.7 pg (28.0-34.0); Mean Corpuscular Volume 93.1 fl (81-99); Mean Platelet Volume 9.6 fL (7.4-10.4); Monocytes # 0.4 10^3/uL (0.2-0.9); Monocytes % 7.4 %; Neutrophils % 32.7 %; Nucleated Red Blood Cells % 0 %; Platelet Count 282 10^3/cmm (130-400); Red Blood Count 4.07 10^6/uL (4.1-5.3); Red Cell Distribution Width 13.2 % (12.1-15.1); White Blood Count 5.5 10^3/uL (4.0-10.0)
--- NOTE | 2020-11-18 10:39 | ECG_ITS ---
[facility] Test Date: 2020-11-18 Pat Name: Toyin Kang Department: Room: Gender: Female Councilperson: : 1980 Requested By: Kera Grossman Order Number: [id number] Gavi MD: Yvonne Harman M.D. Measurements Intervals [place] Rate: 90 P: 58 OR: 149 QRS: 39 QRSD: 86 T: 43 QT: 343 QTc: 421 Interpretive Statements SINUS RHYTHM Compared to ECG 11/18/2020 09:03:09 No significant changes Electronically Signed On 11-19-2020 19:43:29 CDT by Yvonne Harman M.D. [id number]
[2020-11-18 10:40] LABS: Troponin(5th) Baseline 6 ng/L (0-10)
[2020-11-18 10:49] LABS: Alanine Aminotransferase 29 U/L (0-33); Albumin Level 3.4 g/dL (3.5-5.2); Alkaline Phosphatase 57 IU/L (35-105); Anion Gap 11.9 (5-19); Aspartate Amino Transferase 28 U/L (0-32); Blood Urea Nitrogen 10 mg/dL (6-20); Calcium 8.8 mg/dL (8.5-10.5); Carbon Dioxide 28 mmol/L (22-29); Chloride 102 mmol/L (98-107); Globulin 2.8 g/dL (1.3-4.6); Glomerular Filtration Rate 111.9 mL/min (90-130); Glucose 75 mg/dL (65-115); NT Pro B Type Natriuretic Pept 31 pg/mL (0-125); Osmolality Calculated 284 mOsm/kg (285-295); Potassium 3.9 mmol/L (3.5-5.1); Sodium 138 mmol/L (136-145); Total Bilirubin 0.2 mg/dL (0.15-1.2); Total Protein 6.2 g/dL (6.6-8.7)
[2020-11-18 11:46] VITALS: BP 116/70; PULSE 100; O2SAT 96
== END 2020-11-18 11:46 | disposition home or self-care (01) ==
PROVIDERS: Emergency Provider Physician Assistant
DX: R60.0 Localized edema (principal); R39.198 Other difficulties with micturition; R07.89 Other chest pain; Z87.891 Personal history of nicotine dependence
CPT/HCPCS: 36415; 71045; 80053; 83880; 84484; 85025; 93005; 99283

== ENCOUNTER 2020-12-03 15:19 | Emergency (ER) | payer SELFPAY ==
[2020-12-03 15:30] VITALS: BP 132/85; PULSE 107; RESP 18; TEMP 36.5; O2SAT 100; BMI 29.7
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
[2020-12-03 16:13] VITALS: BP 128/85; PULSE 104; RESP 18; TEMP 36.6; O2SAT 100
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
[2020-12-03] MEDS: neomycin-poly-bacitracin oint 0.9 gm Pkt 1 APPLIC TOPICAL (16:25)
[2020-12-03] MEDS: ibuprofen 800 mg tablet PO (16:25)
[2020-12-03 17:40] VITALS: BP 135/84; PULSE 104; RESP 16; TEMP 36.7; O2SAT 99
[2020-12-03 18:05] VITALS: BP 128/82; PULSE 104; RESP 16; TEMP 36.8; O2SAT 96
== END 2020-12-03 18:08 | disposition home or self-care (01) ==
PROVIDERS: Emergency Provider Family Medicine
DX: T21.24XA Burn of second degree of lower back, initial encounter (principal); X16.XXXA Contact with hot heating appliances, radiators and pipes, initial encounter; R55 Syncope and collapse; Z87.891 Personal history of nicotine dependence
CPT/HCPCS: 70450; 99283

== ENCOUNTER 2021-01-21 20:05 | Emergency (ER) | payer SELFPAY ==
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
[2021-01-21 20:20] VITALS: BP 128/91; PULSE 110; RESP 14; TEMP 36.2; O2SAT 97; BMI 29.2
[2021-01-21 20:44] LABS: Basophils % 0.4 %; Eosinophils # 0.1 10^3/uL (0.0-0.8); Hematocrit 47.2 % (37.0-47.0); Hemoglobin 14.8 g/dL (11.5-15.3); Lymphocytes # 1.7 10^3/uL (0.8-4.8); Lymphocytes % 33.9 %; Mean Corpuscular HGB Conc 31.4 g/dL (30.0-36.0); Mean Corpuscular Hemoglobin 28.3 pg (28.0-34.0); Mean Corpuscular Volume 90.2 fl (81-99); Mean Platelet Volume 11.2 fL (7.4-10.4); Monocytes # 0.3 10^3/uL (0.2-0.9); Monocytes % 6.7 %; Neutrophils # 2.93 10^3/uL (1.8-7.7); Neutrophils % 57.4 %; Nucleated Red Blood Cells % 0 %; Platelet Count 115 10^3/cmm (130-400); Red Blood Count 5.23 10^6/uL (4.1-5.3); Red Cell Distribution Width 13.7 % (12.1-15.1); White Blood Count 5.1 10^3/uL (4.0-10.0)
[2021-01-21 21:00] LABS: Acetaminophen < 5.0 ug/mL (10-30); Alanine Aminotransferase 37 U/L (0-33); Alcohol Level < 10 mg/dL (0-10); Alkaline Phosphatase 61 IU/L (35-105); Aspartate Amino Transferase 38 U/L (0-32); Blood Urea Nitrogen 7 mg/dL (6-20); Calcium 8.7 mg/dL (8.5-10.5); Carbon Dioxide 19 mmol/L (22-29); Chloride 100 mmol/L (98-107); Glomerular Filtration Rate 111.9 mL/min (90-130); Glucose 78 mg/dL (65-115); Osmolality Calculated 275 mOsm/kg (285-295); Salicylate < 0.3 mg/dL (3-10); Sodium 134 mmol/L (136-145); Total Bilirubin 0.2 mg/dL (0.15-1.2)
[2021-01-21 21:01] LABS: Anion Gap 18.7 (5-19); Potassium 3.7 mmol/L (3.5-5.1)
[2021-01-21 21:09] LABS: Slide Review Slide Review Perform
[2021-01-21 21:31] VITALS: PULSE 110; RESP 18; O2SAT 99
== END 2021-01-21 21:32 | disposition left against medical advice (07) ==
PROVIDERS: Emergency Provider Emergency Medicine
DX: T40.2X1A Poisoning by other opioids, accidental (unintentional), initial encounter (principal); Z87.891 Personal history of nicotine dependence
CPT/HCPCS: 80053; 80307; 85025; 99283

== ENCOUNTER 2021-02-05 04:42 | Inpatient (IN) | payer SELFPAY ==
[2021-02-05] VITALS (17 sets, daily range): BP systolic 113–154; BP diastolic 71–96; PULSE 102–145; RESP 16–20; TEMP 36.3–37.7; O2SAT 94–100; BMI 29.2; BMI 32.1
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
[2021-02-05] MEDS: sodium chloride 0.9% 1,000 ML 999 ML IV (05:08)
[2021-02-05] MEDS: HYDROmorphone 1 mg/mL INJ 1 mL IVP (05:09)
[2021-02-05 05:16] LABS: Basophils % 0.3 %; Eosinophils # 0.1 10^3/uL (0.0-0.8); Eosinophils % 0.8 %; Hematocrit 37.6 % (37.0-47.0); Hemoglobin 11.9 g/dL (11.5-15.3); Lymphocytes # 1.9 10^3/uL (0.8-4.8); Lymphocytes % 21.4 %; Mean Corpuscular HGB Conc 31.6 g/dL (30.0-36.0); Mean Corpuscular Hemoglobin 28.2 pg (28.0-34.0); Mean Corpuscular Volume 89.1 fl (81-99); Mean Platelet Volume 9.6 fL (7.4-10.4); Monocytes # 0.4 10^3/uL (0.2-0.9); Monocytes % 4.3 %; Neutrophils # 6.42 10^3/uL (1.8-7.7); Neutrophils % 72.6 %; Nucleated Red Blood Cells % 0 %; Platelet Count 272 10^3/cmm (130-400); Red Blood Count 4.22 10^6/uL (4.1-5.3); Red Cell Distribution Width 13.5 % (12.1-15.1); White Blood Count 8.8 10^3/uL (4.0-10.0)
[2021-02-05 05:26] LABS: HCG, Serum Qual Negative (Negative)
[2021-02-05 05:32] LABS: INR 1.02 (0.8-1.2)
[2021-02-05 05:35] LABS: Alanine Aminotransferase 30 U/L (0-33); Albumin Level 3.8 g/dL (3.5-5.2); Alkaline Phosphatase 66 IU/L (35-105); Anion Gap 13.5 (5-19); Aspartate Amino Transferase 36 U/L (0-32); Blood Urea Nitrogen 12 mg/dL (6-20); Calcium 8.2 mg/dL (8.5-10.5); Carbon Dioxide 26 mmol/L (22-29); Chloride 99 mmol/L (98-107); Globulin 2.7 g/dL (1.3-4.6); Glomerular Filtration Rate 93.6 mL/min (90-130); Glucose 105 mg/dL (65-115); Osmolality Calculated 280 mOsm/kg (285-295); Potassium 3.5 mmol/L (3.5-5.1); Sodium 135 mmol/L (136-145); Total Bilirubin 0.3 mg/dL (0.15-1.2); Total Protein 6.5 g/dL (6.6-8.7)
[2021-02-05 05:36] LABS: Alcohol Level < 10 mg/dL (0-10)
[2021-02-05] MEDS: iohexol 300 mg/mL 100 mL Btl IV (05:37)
[2021-02-05] MEDS: midazolam 1 mg/mL INJ 2 mL IVP (06:35)
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
[2021-02-05 07:42] LABS: Add Urine Microscopic? YES; Bilirubin Urine Neg (Negative); Blood Urine 2+ (Negative); Glucose Urine UA Norm (Normal); Ketones Urine Negative (Negative); Leukocyte Esterase Urine Negative (Negative); Nitrate Urine Negative (Negative); Protein Urine Neg (Negative); Urine Appearance Clear (CLEAR); Urine Color Yellow (Yellow); Urobilinogen Urine Norm (Negative); pH Urine 7 (5-7)
[2021-02-05 07:47] LABS: Add Urine Culture? No; Bacteria Urine TRACE /hpf; RBC Urine 0-4 /hpf (0-2); Squamous Epithelial Cell Urine 0-4 /hpf (0-5)
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
[2021-02-05] MEDS: ondansetron 2 mg/ML SDV 2 mL 4 MG IVP ×2 (10:58→17:26)
[2021-02-05] MEDS: morphine 4 mg/mL SDV 1 mL IVP ×2 (10:58→17:26)
[2021-02-05] MEDS: sodium chloride 0.9% 1,000 ML 100 ML IV ×2 (10:59→20:58)
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
[2021-02-05] MEDS: oxyCODONE 5 mg IR Tab/Cap PO (16:30)
[2021-02-05] MEDS: pantoprazole DR 40 mg Tablet PO (17:20)
[2021-02-06] VITALS (9 sets, daily range): BP systolic 123–145; BP diastolic 72–93; PULSE 102–115; RESP 12–18; TEMP 35.3–38; O2SAT 95–99
--- NOTE | 2021-02-06 | SCC_ITS ---
Procedure Done: Intramedullary nail left tibia fracture, open reduction internal fixation left distal fibular shaft fracture. Open reduction internal fixation left distal radius and distal radial shaft fracture, open reduction internal fixation transverse ulnar shaft fracture 378.7 seconds of fluoroscopic guidance, for a cumulative dose of 7.72 mGy, was provided to Dr. Acuna by the radiology department. C-arm images of the left wrist and left ankle were saved for the patient's permanent record. [facility]
[2021-02-06] MEDS: morphine 4 mg/mL SDV 1 mL IVP ×3 (00:16→15:40)
[2021-02-06] MEDS: acetaminophen 500 mg Tablet 1000 MG PO (00:23)
[2021-02-06 04:37] LABS: Basophils % 0.4 %; Eosinophils % 0.4 %; Hematocrit 32.4 % (37.0-47.0); Hemoglobin 10.3 g/dL (11.5-15.3); Lymphocytes # 1.9 10^3/uL (0.8-4.8); Mean Corpuscular HGB Conc 31.8 g/dL (30.0-36.0); Mean Corpuscular Hemoglobin 28.5 pg (28.0-34.0); Mean Corpuscular Volume 89.8 fl (81-99); Mean Platelet Volume 10.3 fL (7.4-10.4); Monocytes # 0.5 10^3/uL (0.2-0.9); Monocytes % 9.4 %; Neutrophils # 3.02 10^3/uL (1.8-7.7); Neutrophils % 54.6 %; Nucleated Red Blood Cells % 0 %; Platelet Count 232 10^3/cmm (130-400); Red Blood Count 3.61 10^6/uL (4.1-5.3); Red Cell Distribution Width 13.9 % (12.1-15.1); White Blood Count 5.5 10^3/uL (4.0-10.0)
[2021-02-06 04:59] LABS: Alanine Aminotransferase 23 U/L (0-33); Albumin Level 2.9 g/dL (3.5-5.2); Alkaline Phosphatase 49 IU/L (35-105); Anion Gap 12.2 (5-19); Aspartate Amino Transferase 30 U/L (0-32); Blood Urea Nitrogen 5 mg/dL (6-20); Calcium 7.7 mg/dL (8.5-10.5); Carbon Dioxide 24 mmol/L (22-29); Chloride 107 mmol/L (98-107); Globulin 2.3 g/dL (1.3-4.6); Glomerular Filtration Rate 178.6 mL/min (90-130); Glucose 92 mg/dL (65-115); Osmolality Calculated 285 mOsm/kg (285-295); Potassium 4.2 mmol/L (3.5-5.1); Sodium 139 mmol/L (136-145); Total Bilirubin 0.3 mg/dL (0.15-1.2); Total Protein 5.2 g/dL (6.6-8.7)
[2021-02-06] MEDS: sodium chloride 0.9% 1,000 ML 100 ML IV ×2 (06:34→15:40)
--- NOTE | 2021-02-06 16:23 | ANES.PREANE2 ---
Pre-Anesthetic Assessment Pre-Anesthetic Assessment: Height/Weight: Height 1.57 m Weight 79.6 kg Temp Pulse Resp BP Pulse Ox 98.2 F 104 H 12 125/86 95 02/06/21 12:00 02/06/21 12:00 02/06/21 15:40 02/06/21 12:00 02/06/21 15:40 Preop Diagnosis: radial fracture Proposed Procedure: Operation Date: 02/06/21 12:20 Proposed Procedures p ORIF Wrist(Left) - Maude Acuna MD s ORIF Tibia/Fibula(Left) - Maude Acuna MD Familial anesthetic complications: None (no personal history of anesthesia) Was Beta Lafonso taken within 24 hours: N/A Was Clonidine taken within 24 hours: N/A Last intake: > 8 hrs Social: Social History: No alcohol and No tobacco Exam: Pre-Anes Outpt Exam: alert, oriented x 3, clear to auscultation bilaterally and regular rate & rhythm Airway: Cervical ROM: WNL MP: 2 Dentition: Full GI: GI: GERD Anesthetic Plan: ASA status: 1 Anesthesia: General Risk of > 500 ml blood loss (7ml/kg in children): No Meds/Allergies Current Medications: Current Medications Generic Name Dose Route Start Last Admin Trade Name Freq PRN Reason Stop Dose Admin Acetaminophen 1,000 mg 02/05/21 15:34 02/06/21 00:23 Acetaminophen 50 0 Mg Tablet PO 1,000 mg TID PRN Administration MILD PAIN OR INCR EASE TEMP Sodium Chloride 1,000 mls @ 100 m ls/hr 02/05/21 10:37 02/06/21 15:40 Sodium Chloride 0.9% IV 100 mls/hr .Q10H MARY Administration Morphine Sulfate 4 mg 02/05/21 10:37 02/06/21 15:40 Morphine 4 Mg/Ml Sdv 1 Ml IVP 4 mg Q2H PRN Administration SEVERE PAIN Ondansetron HCl 4 mg 02/05/21 10:37 02/05/21 17:26 Ondansetron 2 Mg /Ml Sdv 2 Ml IVP 4 mg Q6H PRN Administration NAUSEA AND VOMITI NG Oxycodone HCl 5 mg 02/05/21 15:31 02/05/21 16:30 Oxycodone 5 Mg I r Tab/Cap PO 5 mg Q6H PRN Administration SEVERE PAIN Pantoprazole Sodiu m 40 mg 02/05/21 18:00 02/06/21 10:[address] 40 Mg Tablet PO Not Given BID MARY PFSH Anesthesia PFSH: Medical History (Updated 02/05/21 @ 15:25 by Maued Acuna MD) GERD (gastroesophageal reflux disease) No pertinent past medical history Surgical History No history of previous surgery Family History Father CAD (coronary artery disease) Other Chronic kidney disease (CKD) Denies family history of Anesthesia complication Bleeding disorder Social History (Updated 02/05/21 @ 15:19 by Maude Acuna MD) Smoking and tobacco status: former smoker Alcohol intake: never Substance/Drug Use: current Substance/Drug use frequency: other Substance/Drug use type: Marijuana Other substance/drug use details: Patient states occasionally Lives independently: Yes Marital status: Single History of recent travel: No Data Anesthesia CBC & Chem 7: 02/06/21 03:07 02/06/21 03:07 Other Labs: Laboratory Results - last 48 hr 02/05/21 02/05/21 02/05/21 05:10 05:10 05:10 WBC 8.8 RBC 4.22 Hgb 11.9 Hct 37.6 MCV 89.1 MCH 28.2 MCHC 31.6 RDW 13.5 Plt Count 272 MPV 9.6 Neut % (Auto) 72.6 Lymph % (Auto) 21.4 [place] % (Auto) 4.3 Eos % (Auto) 0.8 Baso % (Auto) 0.3 Neut # (Auto) 6.42 Lymph # (Auto) 1.9 [place] # (Auto) 0.4 Eos # (Auto) 0.1 Baso # (Auto) 0.0 Nucleated RBC % (auto) 0 Nucleated RBCs # 0.0 PT INR Sodium 135 L Potassium 3.5 Chloride 99 Carbon Dioxide 26 Anion Gap 13.5 BUN 12 Creatinine 0.7 GFR Calculation 93.6 Glucose 105 Calculated Osmolality 280 L Calcium 8.2 L Total Bilirubin 0.3 AST 36 H ALT 30 Alkaline Phosphatase 66 Total Protein 6.5 L Albumin 3.8 Globulin 2.7 HCG, Qual Negative Urine Color Urine Appearance Urine pH Ur Specific [place] Urine Protein Urine Glucose (UA) Urine Ketones Urine Blood Urine Nitrate Urine Bilirubin Urine Urobilinogen Ur Leukocyte Esterase Urine RBC Urine WBC Ur Squamous Epith Cells Amorphous Sediment Urine Bacteria Ethyl Alcohol < 10 02/05/21 02/05/21 02/06/21 05:17 06:56 03:07 WBC 5.5 RBC 3.61 L Hgb 10.3 L Hct 32.4 L MCV 89.8 MCH 28.5 MCHC 31.8 RDW 13.9 Plt Count 232 MPV 10.3 Neut % (Auto) 54.6 Lymph % (Auto) 35.0 [place] % (Auto) 9.4 Eos % (Auto) 0.4 Baso % (Auto) 0.4 Neut # (Auto) 3.02 Lymph # (Auto) 1.9 [place] # (Auto) 0.5 Eos # (Auto) 0.0 Baso # (Auto) 0.0 Nucleated RBC % (auto) 0 Nucleated RBCs # 0.0 PT 13.70 INR 1.02 Sodium Potassium Chloride Carbon Dioxide Anion Gap BUN Creatinine GFR Calculation Glucose Calculated Osmolality Calcium Total Bilirubin AST ALT Alkaline Phosphatase Total Protein Albumin Globulin HCG, Qual Urine Color Yellow Urine Appearance Clear Urine pH 7 Ur Specific [place] 1.010 Urine Protein Neg Urine Glucose (UA) Norm Urine Ketones Negative Urine Blood 2+ H Urine Nitrate Negative Urine Bilirubin Neg Urine Urobilinogen Norm Ur Leukocyte Esterase Negative Urine RBC 0-4 H Urine WBC None Ur Squamous Epith Cells 0-4 H Amorphous Sediment Not Reportable Urine Bacteria Trace Ethyl Alcohol 02/06/21 03:07 WBC RBC Hgb Hct MCV MCH MCHC RDW Plt Count MPV Neut % (Auto) Lymph % (Auto) [place] % (Auto) Eos % (Auto) Baso % (Auto) Neut # (Auto) Lymph # (Auto) [place] # (Auto) Eos # (Auto) Baso # (Auto) Nucleated RBC % (auto) Nucleated RBCs # PT INR Sodium 139 Potassium 4.2 Chloride 107 Carbon Dioxide 24 Anion Gap 12.2 BUN 5 L Creatinine 0.4 L GFR Calculation 178.6 H Glucose 92 Calculated Osmolality 285 Calcium 7.7 L Total Bilirubin 0.3 AST 30 ALT 23 Alkaline Phosphatase 49 Total Protein 5.2 L Albumin 2.9 L Globulin 2.3 HCG, Qual Urine Color Urine Appearance Urine pH Ur Specific [place] Urine Protein Urine Glucose (UA) Urine Ketones Urine Blood Urine Nitrate Urine Bilirubin Urine Urobilinogen Ur Leukocyte Esterase Urine RBC Urine WBC Ur Squamous Epith Cells Amorphous Sediment Urine Bacteria Ethyl Alcohol Cardiac Studies: No Data to Display
[2021-02-06] MEDS: sodium chloride 0.9% 1,000 ML 30 ML IV (17:38)
[2021-02-06] MEDS: acetaminophen 1,000 MG/100 ML PIGGYBACK 400 MG IV (18:50)
[2021-02-06] MEDS: ceFAZolin 1,000 mg SDV 2000 MG IRRIGATION (20:37)
[2021-02-07] VITALS (22 sets, daily range): BP systolic 132–162; BP diastolic 72–115; PULSE 108–131; RESP 14–20; TEMP 36.6–37.3; O2SAT 94–100
--- NOTE | 2021-02-07 01:00 | XR_ITS ---
WS: [id number] Left wrist, C-arm fluoroscopy, 02/07/2021 Clinical Data: OR PICS Comparison: Left wrist, 02/05/2021. Findings: There is surgical repair of the comminuted fractures of the distal left radius and ulna. XR/XR wrist LT 2V [id number] Impression: Internal fixation of distal left radial and ulnar fractures.
--- NOTE | 2021-02-07 01:00 | XR_ITS ---
WS: [id number] Left leg including the tibia and fibula, C-arm fluoroscopy, 02/06/2021 Clinical Data: OR PICS Comparison: Left ankle, 02/05/2021 Findings: Surgical repair of comminuted distal left tibial and fibular fractures. XR/XR tibia fibula LT 2V [id number] Impression: Internal fixation of distal left tibial and fibular fractures.
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
--- NOTE | 2021-02-07 01:21 | P.PCN_ITS ---
PACU note PACU note: VSS, Good respiratory effort, report to SOILS TECHNICIAN Post-Anesthesia Exam: awake
--- NOTE | 2021-02-07 01:21 | PM.PACU ---
PACU note PACU note: VSS, Good respiratory effort, report to LABORER CHEESEMAKING Post-Anesthesia Exam: awake
--- NOTE | 2021-02-07 01:40 | ANE.PACU2 ---
Inpatient post-anesthesia follow up: Airway intact: Yes Vital signs: Temperature 98.3 F Pulse Rate 122 Respiratory Rate 18 Blood Pressure 151/72 Pulse Oximetry 96 Oxygen Delivery Me thod Room Air Oxygen Flow Rate 5 Fraction of Inspir ed Oxygen Hydration adequate: Yes Nausea and vomiting: No Pain level: 4 Mental status: Baseline
[2021-02-07] MEDS: oxyCODONE 5 mg IR Tab/Cap PO ×5 (02:38→21:16)
[2021-02-07] MEDS: acetaminophen 1,000 MG/100 ML PIGGYBACK 400 MG IV ×3 (02:39→17:43)
--- NOTE | 2021-02-07 10:35 | PC.CHAP ---
Pastoral Care Encounter/Spiritual Assessment Type of Contact [] Declined instructor dancing visit [] Patient/Family/Request visit [] Outpatient visit [] Follow-up visit [] Physician referral [] Code/Alert [x] Routine visit [] Staff referral [] Actively dying [] Patient sleeping [] Family support [] [] Out of room [] Palliative care [] [] Receiving care in room [] Pre-surgical visit [] Trauma [] Long length of stay [] ICU visit [] Other: Relational/Emotional Strength [x] Patient feels connected with others/family/visitors/staff [] Distress [] Loneliness/isolation [] Abandonment Spirituality of Patient [x] Person of Kristie [x] Attends Anabaptist of their Kristie [x] Believes in Prayer [] Reads Bible or Gnosticist materials [] There are Spiritual issues to be addressed Oxygen Furnace Operator Interventions [x] Prayer [x] Active listening [x] Non-anxious presence [] Spiritual/emotional support [] Crisis/trauma care [] Spiritual counseling [] Bereavement support [] Provided bereavement packet [] Provided Bible/devotional materials [] Provided toy/stuffed animal, coloring book to patient or family member [] Provided Communion [] Anointing/[place] [] Salvation [x] Completed spiritual assessment [] Other: Impact on Illness or Injury [] Angry [] Fearful [] Anxious [] Often cries [] Exhaustion [] Unable to work [] Unable to attend restoration [] Unable to walk/stand [] Unable to read [] Unable to drive [] Unable to eat/drink [] Unable to sleep [] Unable to be with family [] Patient intubated [] Other: Summary Time spent with patient 10 min
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
[2021-02-08] VITALS (7 sets, daily range): BP systolic 129–155; BP diastolic 81–97; PULSE 89–117; RESP 16–18; TEMP 36.8–37.1; O2SAT 96–98
[2021-02-08] MEDS: acetaminophen 500 mg Tablet 1000 MG PO ×2 (00:31→09:20)
[2021-02-08] MEDS: oxyCODONE 5 mg IR Tab/Cap PO ×2 (05:55→12:38)
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
--- NOTE | 2021-02-08 15:31 | PC.NURSE ---
Patient given bath at this time. Hair washed with a shower cap and assisted back into a pong tail. Assisted patient with dressing at this time.
--- NOTE | 2021-02-08 16:00 | PC.NURSE ---
IV removed at this time. Patient tolerated well. Patient is A&Ox3. Respirations even and non-labored on room air. Reviewed patient's discharge with patient and sister at this time. Patient and sister verbalized understanding of discharge instructions and follow up appointment and how to take her medications. Patient assisted into her wheel chair and pushed to her private car.
--- NOTE | 2021-02-08 16:27 | PC.OT ---
Patient fitted and educated on wrist cockup splint. PAtient and caregiver able to teach back.
== END 2021-02-08 15:55 | disposition home or self-care (01) | DRG 493 ==
LOC: ER 08:38 → MEDSURG 08:48
PROVIDERS: Admitting Provider Specialist; Emergency Provider Emergency Medicine; Visit Provider Specialist
PROC: 0QSK04Z Reposition Left Fibula with Internal Fixation Device, Open Approach (ICD-10-PCS; CPT 27828; 2021-02-06 12:10)
DX: S82.462A Displaced segmental fracture of shaft of left fibula, initial encounter for closed fracture (principal); S52.552A Other extraarticular fracture of lower end of left radius, initial encounter for closed fracture; S52.222A Displaced transverse fracture of shaft of left ulna, initial encounter for closed fracture; S89.102A Unspecified physeal fracture of lower end of left tibia, initial encounter for closed fracture; V49.49XA Driver injured in collision with other motor vehicles in traffic accident, initial encounter
CPT/HCPCS: 25605; 27752; 36415; 70450; 71260; 72125; 73090; 73100; 73590; 73600; 73700; 74177; 76000; 80053; 80307; 81001; 84703; 85025; 85610; 96361; 96372; 96374; 97116; 97161; 97165; 97530; 97535; 99285; C1713; J0330; J0690; J1100; J1170; J2250; J2270; J2405; J2704; J3010; J3490; J7030; Q9967

== ENCOUNTER → 2021-02-24 10:12 | Outpatient (BNVA) | payer SELFPAY | PROVIDERS: Visit Provider Specialist | DX: S82.462A Displaced segmental fracture of shaft of left fibula, initial encounter for closed fracture (principal); S82.392A Other fracture of lower end of left tibia, initial encounter for closed fracture; S52.222A Displaced transverse fracture of shaft of left ulna, initial encounter for closed fracture; S52.552A Other extraarticular fracture of lower end of left radius, initial encounter for closed fracture; X58.XXXA Exposure to other specified factors, initial encounter | CPT/HCPCS: 73110; 73590 ==

== ENCOUNTER → 2021-03-28 10:45 | Outpatient (BNVA) | payer MEDICAID, SELFPAY | PROVIDERS: Visit Provider Specialist | DX: S82.462A Displaced segmental fracture of shaft of left fibula, initial encounter for closed fracture (principal); S82.392A Other fracture of lower end of left tibia, initial encounter for closed fracture; S52.222A Displaced transverse fracture of shaft of left ulna, initial encounter for closed fracture; S52.552A Other extraarticular fracture of lower end of left radius, initial encounter for closed fracture; V89.2XXA Person injured in unspecified motor-vehicle accident, traffic, initial encounter; S82.302A Unspecified fracture of lower end of left tibia, initial encounter for closed fracture; S52.202A Unspecified fracture of shaft of left ulna, initial encounter for closed fracture; S52.502A Unspecified fracture of the lower end of left radius, initial encounter for closed fracture | CPT/HCPCS: 73110; 73590 ==

== ENCOUNTER → 2021-04-12 08:14 | Outpatient (BNVA) | payer MEDICAID, SELFPAY | PROVIDERS: Visit Provider Family Medicine | DX: R07.81 Pleurodynia (principal); M94.0 Chondrocostal junction syndrome [Tietze] | CPT/HCPCS: 71046 ==

== ENCOUNTER → 2021-04-18 13:45 | Outpatient (BNVA) | payer MEDICAID, SELFPAY | PROVIDERS: Visit Provider Specialist | DX: S82.462A Displaced segmental fracture of shaft of left fibula, initial encounter for closed fracture (principal); S82.392A Other fracture of lower end of left tibia, initial encounter for closed fracture; S52.222A Displaced transverse fracture of shaft of left ulna, initial encounter for closed fracture; S52.552A Other extraarticular fracture of lower end of left radius, initial encounter for closed fracture; V89.2XXA Person injured in unspecified motor-vehicle accident, traffic, initial encounter; S82.302A Unspecified fracture of lower end of left tibia, initial encounter for closed fracture; S52.202A Unspecified fracture of shaft of left ulna, initial encounter for closed fracture; S52.502A Unspecified fracture of the lower end of left radius, initial encounter for closed fracture | CPT/HCPCS: 73110; 73590; 73610 ==

== ENCOUNTER → 2021-04-22 10:47 | Outpatient (BNVA) | payer MEDICAID, SELFPAY | PROVIDERS: PCP Nurse Practitioner Family; Visit Provider Specialist | DX: S82.109A Unspecified fracture of upper end of unspecified tibia, initial encounter for closed fracture (principal); Z20.822 Contact with and (suspected) exposure to COVID-19; X58.XXXA Exposure to other specified factors, initial encounter | CPT/HCPCS: 87635 ==

== ENCOUNTER 2021-04-29 08:29 | Day surgery (SDC) | payer MEDICAID, SELFPAY ==
[2021-04-29] VITALS (7 sets, daily range): BP systolic 114–157; BP diastolic 79–95; PULSE 96–118; RESP 16–18; TEMP 36.3–36.9; O2SAT 96–100
--- NOTE | 2021-04-29 | SCC_ITS ---
Procedure done: Removal Proximal screws from intramedullary tibial nail x2 (1 medial, 1 lateral) 24.5 seconds of fluoroscopic guidance, for a cumulative dose of 0.62 mGy, was provided to Dr. Acuna by the radiology department. C-arm images of the LEFT tibia fibula were saved for the patient's permanent record. [facility]
[2021-04-29] MEDS: acetaminophen 1,000 MG/100 ML PIGGYBACK 400 MG IV (09:27)
[2021-04-29] MEDS: sodium chloride 0.9% 1,000 ML 30 ML IV (09:27)
--- NOTE | 2021-04-29 09:40 | ANES.PREANE2 ---
Pre-Anesthetic Assessment Height/Weight: Height 1.6 m Weight 83.461 kg Temp Pulse Resp BP Pulse Ox 97.4 F L 96 16 133/82 96 04/29/21 08:59 04/29/21 08:59 04/29/21 08:59 04/29/21 08:59 04/29/21 08:59 Preop Diagnosis: Delayed union left tibia Operation Date: 04/29/21 10:10 Proposed Procedures p Hardware Removal IM Tibial Screw x2(Left) - Maude Acuna MD Familial anesthetic complications: none Was Beta Alfonso taken within 24 hours: N/A Was Clonidine taken within 24 hours: N/A Last intake: Intake Last Liquid Date 04/28/21 Last Liquid Time 23:00 Last Solid Date 04/28/21 Last Solid Time 19:00 Social No alcohol and No tobacco Exam alert, oriented x 3, clear to auscultation bilaterally and regular rate & rhythm Airway Mallampati: Class II Dentition: full Pulmonary None reported CV/HEM None reported None reported Hepatic None reported GI Gastroesophageal Reflux Disease Metabolic None reported Neuropsych None reported Anesthetic Plan ASA status: 2 Anesthesia: General Risk of > 500 ml blood loss (7ml/kg in children): No Medications/Allergies Home Medications Medication Instructions Recorded Confirmed Last Taken Type Left side platform #1 ea 03/28/21 04/18/21 Unknown Rx Allergies Allergy/AdvReac Type Severity Reaction Status Date / Time aspirin Allergy ALGY-Difficulty Verified 04/28/21 10:39 Breathing Current Medications Generic Name Dose Route Start Last Admin Trade Name Freq PRN Reason Stop Dose Admin Sodium Chloride 1,000 mls @ 30 mls/hr 04/29/21 08:45 04/29/21 09:27 Sodium Chloride 0.9% IV 04/30/21 08:44 30 mls/hr .Q24H MARY Administration PFSH Anesthesia Medical History GERD (gastroesophageal reflux disease) No pertinent past medical history Surgical History No history of previous surgery Family History Father CAD (coronary artery disease) Other Chronic kidney disease (CKD) Denies family history of Anesthesia complication Bleeding disorder Social History Smoking and tobacco status: never smoked Alcohol intake: never Lives independently: Yes Marital status: Single History of recent travel: No Data Anesthesia Cardiac Studies: No Data to Display
--- NOTE | 2021-04-29 09:54 | P.HPUD_ITS ---
Surgery/Procedure H&P Update DATE OF PROCEDURE: April 29, 2021 DATE H&P PERFORMED: 04/18/21 H&P UPDATE INFORMATION: I have reviewed H&P completed within last 30 days, I have examined patient prior to procedure, No changes to prior documentation and H&P is in [facility] EMR on date indicated PREOP DIAGNOSIS: Delayed union left tibia PLANNED PROCEDURE: Operation Date: 04/29/21 10:10 Proposed Procedures p Hardware Removal IM Tibial Screw x2(Left) - Maude Acuna MD Related Problem List Diagnoses (1) Fracture of distal end of left tibia: Qualifiers: Encounter type: subsequent encounter Fracture type: closed Fracture morphology: other fracture Fracture healing: with delayed healing Qualified Code(s): S82.392G - Other fracture of lower end of left tibia, subsequent encounter for closed fracture with delayed healing
[2021-04-29 09:57] LABS: OR HCG Qualitative Urine Negative (Negative)
[2021-04-29] MEDS: ceFAZolin 1,000 mg SDV 1000 MG IRRIGATION (11:02)
--- NOTE | 2021-04-29 11:14 | XR_ITS ---
WS: [id number] XR tibia fibula LT 2V [id number] REASON FOR EXAM: OR PICS FINDINGS: Intramedullary bethany fixation of distal metadiaphyseal tibial fracture. Plate and screw fixation of supra syndesmotic fracture of the distal fibula. Fracture fragments and surgical appliances are in proper position and alignment. XR/XR tibia fibula LT 2V [id number] IMPRESSION: Fixation of high left ankle fracture as above.
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
--- NOTE | 2021-04-29 11:36 | SUR.PHASEI ---
patient into pacu awake. patient has dressing to left knee dry and intact. toes to left foot warm and pink.
[2021-04-29] MEDS: HYDROcodone-acetaminophen 5-325 mg Tablet 1 TAB PO (12:14)
== END 2021-04-29 12:30 | disposition home or self-care (01) ==
PROVIDERS: Anesthesiology; PCP Nurse Practitioner Family; Visit Provider Specialist
PROC: (CPT 20680; principal; 2021-04-29 10:00)
DX: S82.392G Other fracture of lower end of left tibia, subsequent encounter for closed fracture with delayed healing (principal); V89.2XXD Person injured in unspecified motor-vehicle accident, traffic, subsequent encounter; K21.9 Gastro-esophageal reflux disease without esophagitis; Z82.49 Family history of ischemic heart disease and other diseases of the circulatory system
CPT/HCPCS: 20680; 73590; 76000; 81025; 84703; J0690; J1100; J1200; J2250; J2405; J2704; J3010; J3490; J7030

== ENCOUNTER → 2021-05-11 13:50 | Outpatient (BNVA) | payer MEDICAID, SELFPAY | PROVIDERS: PCP Nurse Practitioner Family; Visit Provider Specialist | DX: S82.302A Unspecified fracture of lower end of left tibia, initial encounter for closed fracture (principal); X58.XXXA Exposure to other specified factors, initial encounter | CPT/HCPCS: 73590 ==

== ENCOUNTER → 2021-07-14 10:12 | Outpatient (BNVA) | payer MEDICAID, SELFPAY | PROVIDERS: PCP Nurse Practitioner Family; Visit Provider Nurse Practitioner Family | DX: S82.462A Displaced segmental fracture of shaft of left fibula, initial encounter for closed fracture (principal); S82.302A Unspecified fracture of lower end of left tibia, initial encounter for closed fracture; X58.XXXA Exposure to other specified factors, initial encounter | CPT/HCPCS: 73590 ==

== ENCOUNTER 2021-08-02 21:03 | Emergency (ER) | payer MEDICAID, SELFPAY ==
[2021-08-02 21:28] VITALS: BP 140/90; PULSE 108; RESP 16; TEMP 36.7; O2SAT 97
--- NOTE | 2021-08-02 21:52 | XR_ITS ---
WS: [id number] Exam: XR tibia fibula LT 2V [id number] Date/Time of Exam: 08/02/2021 9:52 PM Reason For Exam: injury No acute fracture or dislocation. There are old fractures of the tibia and fibula with internal fixat ion. Soft tissues are unremarkable. An intramedullary bethany is noted in the tibia. There is plate and s crew fixation of the lower fibula. XR/XR tibia fibula LT 2V [id number] IMPRESSION: 1. No acute fracture or dislocation. 2. Healed fractures of the tibia and fibula with hardware.
--- NOTE | 2021-08-02 21:52 | XRR_ITS ---
PROCEDURE INFORMATION: Exam: XR Left Foot Exam date and time: 08/02/2021 10:46 PM Age: 41 years old Clinical indication: Injury or trauma; Fall; Blunt trauma; Foot; Left; Prior surgery; Surgery date: 6+ months; Surgery type: Screw removal most recent TECHNIQUE: Imaging protocol: Radiologic exam of the Left foot. Views: 3 or more views. COMPARISON: CR (TIB/FIB AP, KNEE, TIB/FIB AP) 07/14/2021 10:12 AM FINDINGS: Bones/joints: Distal tibial and fibular orthopedic hardware in place. Diffuse decreased bone density. Soft tissues: Soft tissue swelling over the dorsum of the foot. XR/XR foot LT min 3V* [id number] IMPRESSION: 1. Negative for acute bony abnormality. 2. Distal tibial and fibular orthopedic hardware in place. 3. Diffuse decreased bone density. 4. Soft tissue swelling over the dorsum of the foot.
--- NOTE | 2021-08-02 22:13 | W.ED.EXTPRO ---
HPI - Extremity Problem General: Chief complaint: Extremity Injury, Lower Stated complaint: injury to left left leg & foot Time Seen by Provider: 08/02/21 22:02 History of Present Illness: 41-year-old female comes in today for complaints of left foot pain. Patient was walking her dog when she was suddenly pulled by the dog causing her to fall and twist her foot. Patient has a history of recent fracture and repair of the foot. Patient does have some dorsal swelling of the foot with some pain. Associated symptoms: Deny chest pain or rash Review of Systems General: Reports: 10 or more systems reviewed and unremarkable except in HPI and below Card: Denies: chest pain Resp: Denies: dyspnea Musc: Reports: extremity pain Skin/Breast: Denies: rash PFSH ED PFSH: Medical History (Updated 08/02/21 @ 23:00 by HASEEB Brito) GERD (gastroesophageal reflux disease) No pertinent past medical history Surgical History No history of previous surgery Family History Father CAD (coronary artery disease) Other Chronic kidney disease (CKD) Denies family history of Anesthesia complication Bleeding disorder Social History Smoking and tobacco status: former smoker Alcohol intake: never Lives independently: Yes Marital status: Single History of recent travel: No Physical Exam Const: COMMON NORMALS: alert HENMT: HEAD & SCALP: normal to inspection Neck/C-Spine: COMMON NORMALS: full ROM Resp: COMMON NORMALS: normal respiratory effort and clear to auscultation bilaterally AUSCULTATION: clear to auscultation bilaterally Cardio: COMMON NORMALS: regular rate RATE: regular rate Extremity: LEFT LOWER EXTREMITY: Yes lower leg (No swelling.) Left lower leg: Yes inspection, Yes palpation and Yes neurovascular exam and Yes foot & digits (Mild dorsal swelling with redness.) Left foot and digits: Yes inspection, Yes palpation and Yes ROM Neuro: SENSORIUM/ORIENTATION: Yes alert Course Vital Signs: Vital signs: Vital Signs Temperature 98.0 F 08/02/21 21:28 Pulse Rate 108 H 08/02/21 21:28 Respiratory Rate 16 08/02/21 21:28 Blood Pressure 140/90 08/02/21 21:28 Pulse Oximetry 97 08/02/21 21:28 MDM - Extremity (Nontraumatic) Medical Decision Making 41-year-old female comes in today for complaints of pain to the left foot. Patient reports getting pulled down by her dog which caused her to twist her foot. Patient reports dorsal pain and discomfort. On exam patient has some mild swelling to the dorsal foot normal pulses, normal cap refill. Differential diagnosis includes fracture, contusion, sprain. X-ray noted no acute fracture obvious on the foot or tib-fib. Hardware appears in place to the tib-fib. Reviewed exam with patient with recommendations for treatment and follow-up. Patient reported understanding agreed to plan. Discharge Plan Discharge Patient Disposition: Home Clinical Impression: Foot sprain Qualifiers: Encounter type: initial encounter Laterality: left Qualified Code(s): S93.602A - Unspecified sprain of left foot, initial encounter Condition: Stable Prescriptions: No Action (DME) Left side platform See Rx Instructions .Route .MEDSUPPLY Qty: 1 0RF Rx Instructions: 30 days hydrocodone-acetaminophen 5-325 mg tablet 1 tab PO Q8H PRN (Reason: pain) 10 Days Qty: 30 0RF Discharge Orders: Discharge ED (Routine); Ordered 08/02/21 Ordered By: Mahad Tapia Discharge Diet: Usual diet Discharge Activity: Increase activity as tolerated Patient Instructions: Foot Sprain (ED) Activity Restrictions/Additional Instructions: Wear a good supportive shoe. Activity as tolerated. Use an elastic bandage to help with swelling. Elevate and ice foot is much as possible. Drink plenty of water with medications. Use crutches if unable to bear weight comfortably. Follow-up with primary care or podiatry for repeat evaluation. Return to ER for new concerns. Coding Level of Care Code ED Accounting Machine Operator for Mike Stark
[2021-08-02] MEDS: ibuprofen 800 mg tablet PO (22:35)
[2021-08-02] MEDS: HYDROcodone-acetaminophen 7.5-325 mg Tablet 1 TAB PO (23:21)
== END 2021-08-02 23:22 | disposition home or self-care (01) ==
PROVIDERS: Emergency Provider Nurse Practitioner Family
DX: S93.602A Unspecified sprain of left foot, initial encounter (principal); Z87.891 Personal history of nicotine dependence; X50.1XXA Overexertion from prolonged static or awkward postures, initial encounter
CPT/HCPCS: 73590; 73630; 99283

== ENCOUNTER → 2021-08-11 10:22 | Outpatient (BNVA) | payer BC, MEDICAID, SELFPAY | PROVIDERS: Visit Provider Nurse Practitioner Family | DX: S82.462A Displaced segmental fracture of shaft of left fibula, initial encounter for closed fracture (principal); M79.672 Pain in left foot; X58.XXXA Exposure to other specified factors, initial encounter | CPT/HCPCS: 73590; 73630 ==

== ENCOUNTER → 2021-10-26 11:05 | Outpatient (BNVA) | payer BC, MEDICAID, SELFPAY | PROVIDERS: Visit Provider Specialist | DX: T84.84XA Pain due to internal orthopedic prosthetic devices, implants and grafts, initial encounter (principal); Y79.2 Prosthetic and other implants, materials and accessory orthopedic devices associated with adverse incidents; S82.392G Other fracture of lower end of left tibia, subsequent encounter for closed fracture with delayed healing; Y99.9 Unspecified external cause status | CPT/HCPCS: 73590 ==

== ENCOUNTER 2021-11-09 18:40 | Emergency (ER) | payer BC, MEDICAID, SELFPAY ==
[2021-11-09 18:58] VITALS: BMI 37.8
[2021-11-09 19:03] VITALS: BP 137/85; PULSE 107; RESP 15; TEMP 37.2; O2SAT 99
--- NOTE | 2021-11-09 19:08 | W.ED.ALLEREA ---
HPI - Allergic Reaction General: Chief complaint: Allergic Reaction Stated complaint: possible allergic rxn to drink Time Seen by Provider: 11/09/21 19:05 History of Present Illness: HPI narrative: 41-year-old female comes in today with feeling ill after drinking some Gatorade. Patient reports that she had been outside working and then went down to [employer] and picked up a Gatorade. Patient had drink some of the Gatorade and after that became ill to her stomach with cramps and feeling unwell. Patient reports feeling better now since drinking some water and just came in to be evaluated. Patient appears nontoxic. Patient appears in no pain. Associated symptoms: Reports nausea; Deny vomiting Review of Systems Const: Denies: fever(s) Card: Denies: chest pain Resp: Denies: dyspnea GI: Reports: nausea; Denies: vomiting or diarrhea : Denies: difficulty voiding Musc: Reports: muscle cramps Skin/Breast: Denies: rash PFSH ED PFSH: Medical History (Updated 11/09/21 @ 19:31 by HASEEB Brito) GERD (gastroesophageal reflux disease) No pertinent past medical history Surgical History No history of previous surgery Family History Father CAD (coronary artery disease) Other Chronic kidney disease (CKD) Denies family history of Anesthesia complication Bleeding disorder Social History Smoking and tobacco status: former smoker Alcohol intake: never Lives independently: Yes Marital status: Single History of recent travel: No Physical Exam Const: COMMON NORMALS: alert HENMT: COMMON NORMALS: normocephalic HEAD & SCALP: normocephalic Neck/C-Spine: COMMON NORMALS: full ROM Resp: COMMON NORMALS: normal respiratory effort and clear to auscultation bilaterally AUSCULTATION: clear to auscultation bilaterally Cardio: COMMON NORMALS: regular rate and regular rhythm RATE: regular rate RHYTHM: regular rhythm GI: COMMON NORMALS: Soft to palpation and non-tender PALPATION: Yes Soft to palpation Extremity: COMMON NORMALS: normal to inspection and no pedal edema Neuro: SENSORIUM/ORIENTATION: Yes alert Skin: COMMON NORMALS: turgor normal GENERAL SKIN EXAM: turgor normal Course Vital Signs: Vital signs: Vital Signs Temperature 98.9 F 11/09/21 19:03 Pulse Rate 107 H 11/09/21 19:03 Respiratory Rate 15 11/09/21 19:03 Blood Pressure 136/85 11/09/21 19:18 Pulse Oximetry 99 11/09/21 19:03 Oxygen Delivery Me thod 11/09/21 19:03 MDM - Allergic Reaction Medical Decision Making 41-year-old female comes in today with complaints of abdominal cramping, muscle aches, and nausea after drinking a Gatorade. Patient reports that it lasted about 3 hours and then she started feeling better. Patient came into the ER for evaluation after being referred here from urgent care. Patient appears nontoxic. Patient appears in no pain. Respirations are even lungs are clear to auscultation. Posterior pharynx is normal. Abdomen soft nontender. Skin is warm and dry. Vital signs are normal. Differential diagnosis includes but not limited to adverse reaction to drug patient, heat exhaustion, viral syndrome, malingering. I suspect patient might of have a reaction to her pain medication she is on. Although I cannot rule out a manufacturing issue with the patient's Gatorade. Patient appears nontoxic. I recommend that she just avoid the Gatorade drink plenty of water and follow-up with her primary care. Patient reported understanding and agreed to plan. Discharge Plan Discharge Patient Disposition: Home Clinical Impression: Allergy Qualifiers: Encounter type: initial encounter Qualified Code(s): T78.40XA - Allergy, unspecified, initial encounter Condition: Stable Prescriptions: No Action (DME) Left side platform See Rx Instructions .Route .MEDSUPPLY Qty: 1 0RF Rx Instructions: 30 days hydrocodone-acetaminophen 5-325 mg tablet 1 tab PO Q8H PRN (Reason: pain) 10 Days Qty: 30 0RF Discharge Orders: Discharge ED (Routine); Ordered 11/09/21 Ordered By: Mhaad Tapia Discharge Diet: Usual diet Discharge Activity: Increase activity as tolerated Patient Instructions: General Allergic Reaction (ED) Activity Restrictions/Additional Instructions: Drink plenty of water and fluids. Get plenty of rest. Follow-up with primary care in the morning for recheck. Return to ER for worsening symptoms such as fever greater than 100.4, persistent nausea and vomiting, blood in vomit or stool. Coding Level of Care Code ED Compliance Testing Analyst for Chg Fwd Exam Comprehensive
[2021-11-09 19:18] VITALS: BP 123/85; BP 136/85; BP 141/82
== END 2021-11-09 19:35 | disposition home or self-care (01) ==
PROVIDERS: Emergency Provider Nurse Practitioner Family
DX: T78.40XA Allergy, unspecified, initial encounter (principal); Z87.891 Personal history of nicotine dependence
CPT/HCPCS: 99281

== ENCOUNTER 2021-11-25 06:28 | Day surgery (SDC) | payer BC, MEDICAID, SELFPAY ==
[2021-11-24 13:03] VITALS: BMI 37.5
--- NOTE | 2021-11-25 | XR_ITS ---
WS: [id number] Left ankle, C-arm fluoroscopy, 11/25/2021 Clinical Data: OR PIC /REMOVAL OF LEFT DISTAL TIBIA SCREW Comparison: Left ankle, 02/06/2021 Findings: Dr. Acuna removed the distal transverse fixation screw from the intramedullary bethany ending in the dist al left tibia. XR/XR ankle LT 1V [id number] Impression: Removal of fixation screw from distal left tibia.
--- NOTE | 2021-11-25 | SCC_ITS ---
Procedure done: Removal left distal tibial screw from intramedullary bethany 13.5 seconds of fluoroscopic guidance, for a cumulative dose of 0.43 mGy, was provided to Dr. Acuna by the radiology department. C-arm images of the LEFT ankle were saved for the patient's permanent record. FRANCISCO
[2021-11-25 07:03] LABS: OR HCG Qualitative Urine Negative (Negative)
[2021-11-25 07:04] VITALS: BP 144/97; PULSE 80; RESP 18; TEMP 36.6; O2SAT 100
[2021-11-25] MEDS: sodium chloride 0.9% 1,000 ML 30 ML IV (07:14)
[2021-11-25] MEDS: acetaminophen 1,000 MG/100 ML PIGGYBACK 400 MG IV (07:15)
[2021-11-25] MEDS: CELEcoxib 200 mg Capsule 400 MG PO (07:16)
--- NOTE | 2021-11-25 07:49 | W.PM.OPSUD ---
Surgery/Procedure H&P Update DATE OF PROCEDURE: November 25, 2021 DATE H&P PERFORMED: 10/26/21 H&P UPDATE INFORMATION: I have reviewed H&P completed within last 30 days, I have examined patient prior to procedure, No changes to prior documentation and H&P is in [facility] EMR on date indicated PREOP DIAGNOSIS: Painful distal screw medial left tibia PLANNED PROCEDURE: Operation Date: 11/25/21 08:00 Proposed Procedures p REMOVAL DISTAL TIBIA SCREW LEFT 37722,T84.84XA(Left) - Maude Acuna MD Related Problem List Diagnoses (1) Painful orthopaedic hardware: (2) Displaced segmental fracture of shaft of left fibula: Qualifiers: Encounter type: initial encounter Fracture type: closed Qualified Code(s): S82.462A - Displaced segmental fracture of shaft of left fibula, initial encounter for closed fracture
--- NOTE | 2021-11-25 08:40 | ANES.PREANE2 ---
Pre-Anesthetic Assessment Height/Weight: Height 1.56 m Weight 90.718 kg Temp Pulse Resp BP Pulse Ox O2 Del Method 97.8 F 80 18 144/97 100 11/25/21 07:04 11/25/21 07:04 11/25/21 07:04 11/25/21 07:04 11/25/21 07:04 11/25/21 07:04 Preop Diagnosis: Painful distal screw medial left tibia Operation Date: 11/25/21 08:00 Proposed Procedures p REMOVAL DISTAL TIBIA SCREW LEFT 86868,T84.84XA(Left) - Maude Acuna MD Familial anesthetic complications: none Was Beta Alfonso taken within 24 hours: N/A Was Clonidine taken within 24 hours: N/A Last intake: Intake Last Liquid Date 11/24/21 Last Liquid Time 23:00 Last Solid Date 11/24/21 Last Solid Time 23:00 Social No alcohol and No tobacco Exam alert, oriented x 3, clear to auscultation bilaterally and regular rate & rhythm Airway Mallampati: Class II Dentition: full GI Gastroesophageal Reflux Disease Anesthetic Plan ASA status: 2 Anesthesia: General Risk of > 500 ml blood loss (7ml/kg in children): No Medications/Allergies Home Medications Medication Instructions Recorded Confirmed Last Taken Type No Known Home Medications 11/25/21 11/25/21 Unknown History Allergies Allergy/AdvReac Type Severity Reaction Status Date / Time aspirin Allergy ADR/ALGY-Fl Verified 11/25/21 07:31 ushing Current Medications Generic Name Dose Route Start Last Admin Trade Name Freq PRN Reason Stop Dose Admin Sodium Chloride 1,000 mls @ 30 mls/hr 11/25/21 06:45 11/25/21 07:14 Sodium Chloride 0.9% IV 11/26/21 06:44 30 mls/hr .Q24H MARY Administration PFSH Anesthesia Medical History (Updated 11/17/21 @ 00:01 by ) GERD (gastroesophageal reflux disease) No pertinent past medical history Surgical History No history of previous surgery Family History Father CAD (coronary artery disease) Other Chronic kidney disease (CKD) Denies family history of Anesthesia complication Bleeding disorder Social History Smoking and tobacco status: former smoker Alcohol intake: never Lives independently: Yes Marital status: Single History of recent travel: No Data Anesthesia Cardiac Studies: No Data to Display
[2021-11-25] MEDS: ceFAZolin 2,000 MG in sodium chloride 0.9% (plus) 50 ML 100 MG IV (09:23)
--- NOTE | 2021-11-25 10:03 | SUR.OPER ---
0950 screw removed intact, inspected by dr chacon, sent to cs to be cleaned and returned to pt.
[2021-11-25 10:08] VITALS: BP 124/76; PULSE 89; RESP 16; TEMP 36.4; O2SAT 95
--- NOTE | 2021-11-25 10:14 | PM.OP ---
Operative Report Date of procedure: November 25, 2021 Pre-op diagnosis: Painful left distal tibia screw with medial entry point Post-op diagnosis: Painful left distal tibia screw with medial entry point Procedure done: Removal left distal tibial screw from intramedullary bethany Specimens removed/disposition: Screw, sent with patient Pathology: none sent Surgeon: Maude Acuna Maintenance Technician 3Rd Shift: None Anesthesia: General (With LMA, ASA 2) Estimated blood loss (mL): 1 Tourniquet time (min): 9 (At 250 mmHg) IV fluids (mL): 400 Urine output (mL): 0 (No Welch) Complications: None Findings: Prominent distal left tibial screw, painful Condition: stable Disposition: PACU (Then return to same-day surgery for discharge to home) Brief History: This is an established 41 year old female patient here today for removal of a painful distal screw from an intramedullary bethany used as treatment for a fracture of distal end of L tibia. DOS: 02/07/21. She has healed this fracture, and has been weightbearing as tolerated. She has pain associated with the medial to lateral distal tibial screw which is prominent. Plans are made for removal of this. In the office, consents were signed and questions were answered. Procedure: Patient was seen in the preoperative holding area and leg was marked. Patient was brought to the operating theater and placed on the operating room table. After undergoing adequate general anesthesia per LMA, ASA 2, the patient's left lower extremity was prepped and draped in usual fashion utilizing DuraPrep. The leg was draped free. Fluoroscopy was used throughout the surgical procedure. We had a tourniquet high on the left lower extremity. This was elevated to 250 mmHg and total tourniquet time was 9 minutes. Tourniquet elevation followed exsanguination of the leg. A surgical pause was performed. At the time of the surgical pause we identified the site and side of surgery as well as the patient's identity and availability of equipment. We also confirmed appropriate administration of IV antibiotics, Ancef 2 g. Following the above, an incision was made centering over the patient's insertion site for the screw. Appropriate position for the incision was confirmed with use of fluoroscopy. Once screw site was evaluated, a small incision was made over the site of the original incision. Following incision of the skin and subcutaneous tissues, a curette was used along with a Mason to further identify the screw. Care was taken to make sure the head of the screw was clear for the screwdriver. We were able to pass a screwdriver into the screw head and backed the screw out uneventfully. Screw was evaluated and found to be not broken. This was sent off for cleaning and was to be sent with the patient. Following closure of the skin, a sterile dressing was placed consisting of Dermabond, OpSite and an Demarcus wrap. The procedure was well tolerated without complication. Tourniquet time was 9 minutes at 250 mmHg. The patient will be discharged home to follow-up in my office as scheduled. Related Problem List Diagnoses (1) Painful orthopaedic hardware: (2) Fracture of distal end of left tibia:
[2021-11-25 10:15] VITALS: BP 139/81; PULSE 86; RESP 18; TEMP 36.2; O2SAT 100
[2021-11-25 10:22] VITALS: BP 129/97; PULSE 83; RESP 18; TEMP 36.1; O2SAT 100
[2021-11-25] MEDS: HYDROcodone-acetaminophen 5-325 mg Tablet 1 TAB PO (10:32)
[2021-11-25 10:45] VITALS: BP 120/81; PULSE 87; RESP 18; O2SAT 100
--- NOTE | 2021-11-25 13:00 | ANE.PACU2 ---
Inpatient post-anesthesia follow up: Airway intact: Yes Vital signs: Temperature 97.0 F Pulse Rate 87 Respiratory Rate 18 Blood Pressure 120/81 Pulse Oximetry 100 Oxygen Delivery Me thod Room Air Oxygen Flow Rate Fraction of Inspir ed Oxygen Hydration adequate: Yes Nausea and vomiting: No Pain level: 1 Mental status: Baseline
== END 2021-11-25 11:05 | disposition home or self-care (01) ==
PROVIDERS: Anesthesiology; PCP Family Medicine; Visit Provider Specialist
DX: T84.84XA Pain due to internal orthopedic prosthetic devices, implants and grafts, initial encounter (principal); K21.9 Gastro-esophageal reflux disease without esophagitis; Z87.891 Personal history of nicotine dependence
CPT/HCPCS: 73600; 76000; 81025; 84703; J2405; J2704; J3010; J7030

== ENCOUNTER → 2021-12-09 10:18 | Outpatient (BNVA) | payer BC, MEDICAID, SELFPAY | PROVIDERS: PCP Family Medicine; Visit Provider Nurse Practitioner Family | DX: S82.302A Unspecified fracture of lower end of left tibia, initial encounter for closed fracture (principal); X58.XXXA Exposure to other specified factors, initial encounter; Z98.890 Other specified postprocedural states | CPT/HCPCS: 73610 ==

== ENCOUNTER → 2021-12-26 14:19 | Outpatient (BNVA) | payer BC, MEDICAID, SELFPAY | PROVIDERS: PCP Family Medicine; Referring Provider Family Medicine; Visit Provider Specialist | DX: G89.29 Other chronic pain (principal); M25.511 Pain in right shoulder; M25.512 Pain in left shoulder | CPT/HCPCS: 73030 ==

== ENCOUNTER 2022-01-31 09:59 | Outpatient (CLI) | payer BC, MEDICAID, SELFPAY ==
--- NOTE | 2022-01-31 10:05 | MR_ITS ---
WS: [id number] MRI RIGHT SHOULDER NONCONTRAST TECHNIQUE: Sagittal T2, coronal T1, T2 and proton density imaging. Axial gradient PDE imaging. CLINICAL INFORMATION: shoulder pain COMPARISON: None. FINDINGS: Moderate degenerative arthritis AC joint with mild downsloping of the acromion. Slight subacromial sp urring. Small amount of subacromial fluid. Degenerative cystic changes involving the greater tuberosi ty. Mild narrowing of the subacromial space. Slight impingement on the distal supraspinatus with tend inopathy. Supraspinatus is intact. Small bursal surface tear involving the supraspinatus just distal to the tip of the acromion. Tiny insertional tear supraspinatus and infraspinatus distally. Otherwise normal infraspinatus. Normal teres minor. Tiny biceps tendon within the bicipital groove. Tendinopathy involving the distal subscapularis tendo n. Thinning with suspected prior partial tear involving the subscapularis tendon. Tiny intra-articula r biceps tendon. Degenerative cystic changes involving the greater tuberosity. MR/MR shoulder RT wo con* [id number] IMPRESSION: 1. Moderate degenerative arthritis AC joint with mild downsloping of the acrom ion. Impingement on the distal supraspinatus with mild atrophy. 2. Partial-thickness bursal surface tear involving the distal supraspinatus ju st distal to the acromium. Small insertional tear distal supraspinatus and infr aspinatus insertions. 3. Somewhat diminutive subscapularis tendon appears intact with tendinopathy. Suspected prior partial tear of the subscapularis tendon. 4. Tiny diminutive biceps tendon within the bicipital groove appears intact. 5. Degenerative cystic changes with edema involving the greater tuberosity. 6. Visually small shoulder capsule. Correlation for adhesive capsulitis.
== END 2022-01-31 10:00 | disposition home or self-care (01) ==
LOC: RAD 10:00
PROVIDERS: PCP Family Medicine; Visit Provider Specialist
DX: M19.011 Primary osteoarthritis, right shoulder (principal); M75.101 Unspecified rotator cuff tear or rupture of right shoulder, not specified as traumatic
CPT/HCPCS: 73221

== ENCOUNTER 2022-09-09 23:29 | Emergency (ER) | payer BC, MEDICAID, SELFPAY ==
[2022-09-09 23:10] VITALS: BP 141/83; PULSE 105; RESP 20; TEMP 36.6; O2SAT 98; BMI 37.8
--- NOTE | 2022-09-09 23:37 | XRR_ITS ---
PROCEDURE INFORMATION: Exam: XR Chest Exam date and time: 09/09/2022 11:41 PM Age: 42 years old Clinical indication: Patient HX: Drug overdose; Additional info: Od TECHNIQUE: Imaging protocol: Radiologic exam of the chest. Views: 1 view. COMPARISON: CR XR chest 2V* [id number] 04/12/2021 8:19 AM FINDINGS: Lungs: Stable hyperaerated lungs consistent with deep inspiratory effort vs reactive airway disease vs mild COPD . Pleural spaces: Unremarkable. No pleural effusion. No pneumothorax. Heart/Mediastinum: Unremarkable. No cardiomegaly. Bones/joints: Unremarkable. XR/XR chest 1V portable [id number] IMPRESSION: Stable hyperaerated lungs consistent with deep inspiratory effort vs reactive airway disease vs mild COPD .
[2022-09-09 23:56] LABS: Basophils % 0.2 %; Eosinophils # 0.1 10^3/uL (0.0-0.8); Eosinophils % 0.5 %; Hematocrit 39.5 % (37.0-47.0); Hemoglobin 12.7 g/dL (11.5-15.3); Lymphocytes # 1.1 10^3/uL (0.8-4.8); Lymphocytes % 12.3 %; Mean Corpuscular HGB Conc 32.2 g/dL (30.0-36.0); Mean Corpuscular Hemoglobin 28.8 pg (28.0-34.0); Mean Corpuscular Volume 89.6 fl (81-99); Mean Platelet Volume 9.2 fL (7.4-10.4); Monocytes # 0.6 10^3/uL (0.2-0.9); Monocytes % 6.4 %; Neutrophils # 7.37 10^3/uL (1.8-7.7); Neutrophils % 80.3 %; Nucleated Red Blood Cells % 0 %; Platelet Count 244 10^3/cmm (130-400); Red Blood Count 4.41 10^6/uL (4.1-5.3); Red Cell Distribution Width 13.9 % (12.1-15.1); White Blood Count 9.2 10^3/uL (4.0-10.0)
--- NOTE | 2022-09-09 23:57 | XRR_ITS ---
PROCEDURE INFORMATION: Exam: XR Right Hand Exam date and time: 09/09/2022 11:59 PM Age: 42 years old Clinical indication: Fingers; Right; Patient HX: Redness and swelling of 4th digit with greying of skin to tip of finger. ; Additional info: Infection with swelling TECHNIQUE: Imaging protocol: Radiologic exam of the right hand. Views: 3 or more views. COMPARISON: No relevant prior studies available. FINDINGS: Bones/joints: Healed fracture involving the proximal shaft of the little finger proximal phalanx with residual angulation. Soft tissues: Soft tissue swelling over the distal 4th finger without obvious soft tissue emphysema. XR/XR hand RT min 3V* [id number] IMPRESSION: Soft tissue swelling over the distal 4th finger without obvious soft tissue emphysema.
--- NOTE | 2022-09-09 23:59 | ECG_ITS ---
[facility] Test Date: 2022-09-09 Pat Name: Toyin Kang Department: Room: Gender: Female Professor Of Violin: : 1980 Requested By: Fede Reyes Order Number: [id number] Gatica MD: Anoop Becerril M.D. Measurements Intervals [place] Rate: 108 P: 135 CA: 154 QRS: 83 QRSD: 77 T: 116 QT: 326 QTc: 438 Interpretive Statements SINUS TACHYCARDIA LEFT ATRIAL ENLARGEMENT [-0.15mV P-WAVE IN V1/V2] Compared to ECG 11/18/2020 10:58:21 Atrial abnormality now present Sinus rhythm no longer present Electronically Signed On 09-11-2022 8:32:46 CDT by Anoop Becerril M.D. [email or web address]
[2022-09-10 00:02] VITALS: BP 141/82; PULSE 114; RESP 12; O2SAT 95
[2022-09-10] MEDS: clindamycin 900 MG/50 ML PREMIX 100 MG IV (00:16)
[2022-09-10 00:21] LABS: Alanine Aminotransferase 28 U/L (0-33); Albumin Level 3.7 g/dL (3.5-5.2); Alkaline Phosphatase 56 U/L (35-105); Anion Gap 16.5 (5-19); Aspartate Amino Transferase 28 U/L (0-32); Blood Urea Nitrogen 8 mg/dL (6-20); Calcium 8.8 mg/dL (8.5-10.5); Carbon Dioxide 23 mmol/L (22-29); Chloride 102 mmol/L (98-107); Globulin 2.9 g/dL (1.3-4.6); Glomerular Filtration Rate 136.6 mL/min (90-130); Glucose 111 mg/dL (65-115); Osmolality Calculated 285 mOsm/kg (285-295); Potassium 3.5 mmol/L (3.5-5.1); Sodium 138 mmol/L (136-145); Total Bilirubin 0.6 mg/dL (0.15-1.2); Total Protein 6.6 g/dL (6.6-8.7)
[2022-09-10 00:28] LABS: Acetaminophen < 5.0 ug/mL (10-30); Alcohol Level < 10 mg/dL (0-10); Salicylate < 0.3 mg/dL (3-10)
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
[2022-09-10 01:31] LABS: Specific Gravity, Urine 1.015 (1.005-1.030); Urine Appearance Cloudy (CLEAR); Urine Color Yellow (Yellow); pH Urine 6.5 (5-7)
[2022-09-10 01:32] LABS: Add Urine Microscopic? YES; Bilirubin Urine Neg (Negative); Blood Urine Neg (Negative); Glucose Urine UA Norm (Normal); Ketones Urine 2+ (Negative); Leukocyte Esterase Urine Negative (Negative); Nitrate Urine Positive (Negative); Protein Urine 1+ (Negative); Urobilinogen Urine Norm (Negative)
[2022-09-10 01:36] VITALS: PULSE 107; RESP 20; O2SAT 98
[2022-09-10 01:36] LABS: RBC Urine 0-4 /hpf (0-2)
[2022-09-10] MEDS: ipratropium-albuterol 3 mL Neb INHALATION (01:36)
[2022-09-10 01:37] LABS: Bacteria Urine 3+ /hpf
[2022-09-10 01:38] VITALS: PULSE 103; RESP 1; O2SAT 98
[2022-09-10 01:39] LABS: Add Urine Culture? Yes; Amphetamines Screen Urine Positive (Negative); Barbiturates Screen Urine Negative (Negative); Benzodiazepines Screen Urine Negative (Negative); Cocaine Screen Urine Negative (Negative); Opiate Screen Urine Positive (Negative); PCP Screen Urine Negative (Negative); THC Screen Urine Positive (Negative)
[2022-09-10 01:46] VITALS: BP 153/106; RESP 18; O2SAT 91
[2022-09-10 02:04] VITALS: BP 153/106; PULSE 105; RESP 18; O2SAT 97
[2022-09-10 02:05] VITALS: BP 153/106; PULSE 109; O2SAT 94
== END 2022-09-10 02:15 | disposition home or self-care (01) ==
PROVIDERS: Emergency Provider Emergency Medicine; PCP Family Medicine
DX: T40.2X1A Poisoning by other opioids, accidental (unintentional), initial encounter (principal); R55 Syncope and collapse; L03.011 Cellulitis of right finger; L60.0 Ingrowing nail
CPT/HCPCS: 36415; 71045; 73130; 80053; 80306; 80307; 81001; 85025; 87077; 87086; 87186; 93005; 94640; 96374; 99285; J3490

== ENCOUNTER → 2022-12-19 12:29 | Outpatient (BNVA) | payer BC, MEDICAID, SELFPAY | PROVIDERS: PCP Family Medicine; Visit Provider Family Medicine | DX: F41.1 Generalized anxiety disorder (principal); K14.8 Other diseases of tongue; R20.0 Anesthesia of skin; K21.9 Gastro-esophageal reflux disease without esophagitis | CPT/HCPCS: 80053; 80061; 82306; 83036; 84443; 85025 ==

== ENCOUNTER 2023-09-19 07:15 | Outpatient (CLI) | payer BC, MEDICAID, SELFPAY ==
--- NOTE | 2023-09-19 07:15 | US_ITS ---
WS: [id number] RIGHT UPPER QUADRANT ULTRASOUND HISTORY: B19.20 - Unspecified viral hepatitis C without hepatic coma COMPARISON: 07/23/2019 Liver: 14.4 cm in length. Normal size liver and echogenicity. No bile duct dilatation or mass. Portal Vein: Normal hepatopetal flow with monophasic waveform. Gallbladder: Normally distended gallbladder with no stones or wall thickening. CBD: 0.2 cm Pancreas: Normal size and echogenicity. Right kidney: 8.6 cm in length. Normal size and echogenicity. No hydronephrosis or mass. Aorta and IVC: Unremarkable abdominal aorta and IVC. No ascites. US/US liver [id number] IMPRESSION: Normal right upper quadrant ultrasound.
== END 2023-09-19 07:24 | disposition home or self-care (01) ==
PROVIDERS: PCP Family Medicine; Visit Provider Student in an Organized Health Care Education/Training Program
DX: B19.20 Unspecified viral hepatitis C without hepatic coma (principal)
CPT/HCPCS: 76705; 93306

== ENCOUNTER 2023-09-26 12:42 | Outpatient (CLI) | payer BC, MEDICAID, SELFPAY ==
[2023-09-26 13:30] LABS: Estmated Average Glucose 111; Hemoglobin A1C 5.5 % (4.0-6.0)
[2023-09-26 13:39] LABS: HIV 1 & 2 Antibody Non-Reactive (Non-Reactiv); HIV 1 & 2 Antigen Non-Reactive (Non-Reactiv)
[2023-10-03 15:09] LABS: Hepatitis C Genotype RNA 1a
== END 2023-09-26 12:43 | disposition home or self-care (01) ==
LOC: LAB 12:43
PROVIDERS: PCP Family Medicine; Visit Provider Student in an Organized Health Care Education/Training Program
DX: B19.20 Unspecified viral hepatitis C without hepatic coma (principal); K21.9 Gastro-esophageal reflux disease without esophagitis
CPT/HCPCS: 81596; 83036; 87806; 87902

== ENCOUNTER 2023-10-31 12:50 | Outpatient (CLI) | payer BC, MEDICAID, SELFPAY ==
[2023-10-31 13:47] LABS: Basophils # 0.1 10^3/uL (0.0-0.1); Basophils % 1.1 %; Eosinophils # 0.1 10^3/uL (0.0-0.8); Eosinophils % 1.8 %; Hematocrit 40.9 % (36-47); Lymphocytes # 2.9 10^3/uL (0.8-4.8); Mean Corpuscular HGB Conc 31.8 g/dL (30-55); Mean Corpuscular Hemoglobin 29.1 pg (27-33); Mean Corpuscular Volume 91.7 fl (85-98); Mean Platelet Volume 9.7 fL (7.4-10.4); Monocytes # 0.5 10^3/uL (0.2-0.9); Monocytes % 6.9 %; Neutrophils # 3.04 10^3/uL (1.8-7.7); Neutrophils % 45.9 %; Nucleated Red Blood Cells % 0 %; Platelet Count 303 10^3/cmm (157-399); Red Blood Count 4.46 10^6/uL (3.85-5.65); Red Cell Distribution Width 13.9 % (12.1-15.1); White Blood Count 6.62 10^3/uL (3.29-11.43)
[2023-10-31 14:04] LABS: Alanine Aminotransferase 12 U/L (0-33); Albumin Level 3.6 g/dL (3.5-5.2); Alkaline Phosphatase 63 U/L (35-105); Aspartate Amino Transferase 14 U/L (0-32); Blood Urea Nitrogen 9 mg/dL (6-20); Calcium 9.2 mg/dL (8.5-10.5); Carbon Dioxide 25 mmol/L (22-29); Chloride 105 mmol/L (98-107); Globulin 2.6 g/dL (1.3-4.6); Glomerular Filtration Rate 110.2 mL/min (90-130); Glucose 88 mg/dL (65-115); Osmolality Calculated 290 mOsm/kg (285-295); Sodium 141 mmol/L (136-145); Total Bilirubin 0.2 mg/dL (0.15-1.2); Total Protein 6.2 g/dL (6.6-8.7)
== END 2023-10-31 12:51 | disposition home or self-care (01) ==
LOC: LAB 12:53
PROVIDERS: PCP Family Medicine; Visit Provider Student in an Organized Health Care Education/Training Program
DX: Z79.899 Other long term (current) drug therapy (principal)
CPT/HCPCS: 36415; 80053; 85025